=== PATIENT | female | born 1990 | race Caucasian/White ===

== ENCOUNTER 2019-10-26 11:08 | Outpatient (CLI) | payer OTHER, SELFPAY ==
--- NOTE | ~2019-10-26 | US_ITS ---
EXAMINATION: US OB <=14 wk fetus w TV DATE: 10/26/2019 11:55 INDICATION: First trimester dating TECHNIQUE: Real-time pelvic transabdominal and transvaginal ultrasound was performed. COMPARISON: None. FINDINGS: The uterus measures 8.5 x 5.1 x 5.3 cm. There is an intrauterine fluid collection with a me an diameter of 10 mm , which correlates with an estimated gestational age of 5 weeks and 4 day(s) (+/ -) 4 day(s). A 1.3 x 0.8 cm hypoechoic area is seen adjacent to the fluid collection. A yolk sac is i dentified in the fluid collection. The pole is too small to identified. The right ovary measures 2.3 x 1.5 x 1.4 cm. The left ovary measures 3.3 x 2.0 x 1.9 cm. There is nor mal vascular flow in the ovaries. There is no free fluid in the pelvis. IMPRESSION: 1. Intrauterine gestational sac with an estimated gestational age of 5 weeks and 4 day(s) (+/-) 4 day (s) and an estimated delivery date of 06/23/2020 based on mean sac diameter. pole not definitely visualized, likely due to early gestation. 2. Likely small subchorionic hematoma. Reviewed, dictated and finalized at location A. IMPRESSION: 1. Intrauterine gestational sac with an estimated gestational age of 5 weeks an d 4 day(s) (+/-) 4 day(s) and an estimated delivery date of 06/23/2020 based on m fabiola sac diameter. pole not definitely visualized, likely due to early ges tation. 2. Likely small subchorionic hematoma.
== END 2019-10-26 11:09 | disposition home or self-care (01) ==
PROVIDERS: PCP Family Medicine; Visit Provider Student in an Organized Health Care Education/Training Program
DX: Z34.90 Encounter for supervision of normal pregnancy, unspecified, unspecified trimester (principal)
CPT/HCPCS: 76801; 76817

== ENCOUNTER 2019-11-09 10:31 | Outpatient (CLI) | payer OTHER, SELFPAY ==
--- NOTE | ~2019-11-09 | US_ITS ---
EXAMINATION: US OB <=14 wk fetus w TV DATE: 11/09/2019 11:11 INDICATION: Encounter for supervision of normal , first trimester dating TECHNIQUE: Real-time pelvic transabdominal and transvaginal ultrasound was performed. COMPARISON: 10/26/2019 FINDINGS: The uterus measures 14.5 x 7.6 x 5.6 cm. There is an intrauterine gestational sac. There i s a 1.5 x 1.5 x 0.7 cm hypoechoic area adjacent to the gestational sac. A yolk sac is identified. Fet al heart motion is identified measuring 145 beats per minute (bpm) by M-mode Doppler. The crown rump length measures 1.3 cm , which correlates with an estimated gestational age of 7 weeks and 3 da y(s) (+/-) 5 day(s). The right ovary measures 2.3 x 1.9 x 0.9 cm. The left ovary measures 2.5 x 1.8 x 2 cm. There is no fr ee fluid in the pelvis. IMPRESSION: 1. Live intrauterine with an estimated gestational age of 7 weeks and 3 day(s) (+/-) 5 day( s) and an estimated delivery date of 06/24/2020. 2. Small subchorionic hematoma. Reviewed, dictated and finalized at location A. IMPRESSION: 1. Live intrauterine with an estimated gestational age of 7 weeks and 3 day(s) (+/-) 5 day(s) and an estimated delivery date of 06/24/2020. 2. Small subchorionic hematoma.
== END 2019-11-09 10:32 | disposition home or self-care (01) ==
PROVIDERS: PCP Family Medicine; Visit Provider Student in an Organized Health Care Education/Training Program
DX: Z34.90 Encounter for supervision of normal pregnancy, unspecified, unspecified trimester (principal)
CPT/HCPCS: 76801; 76817

== ENCOUNTER 2019-11-23 11:41 | Outpatient (CLI) | payer OTHER, SELFPAY ==
[2019-11-23 12:05] LABS: Basophils Absolute Auto 0.02 K/mm3 (0.00-0.10); Basophils Percent Auto 0.2 % (0.0-1.0); Eosinophils Absolute Auto 0.03 K/mm3 (0.02-0.50); Eosinophils Percent Auto 0.3 % (1.0-6.0); Hematocrit 41.8 % (35.0-49.0); Hemoglobin 13.5 g/dL (12.0-15.0); Immature Granulocyte Absolute 0.04 K/mm3 (0.00-0.00); Immature Granulocyte Percent A 0.4 % (0.0-0.0); Lymphocytes Absolute Auto 1.91 K/mm3 (1.10-4.50); Lymphocytes Percent Auto 21.3 % (18.0-42.0); Mean Corpuscular HGB Conc 32.3 g/dL (32.0-36.0); Mean Corpuscular Hemoglobin 30.3 pg (27.0-31.0); Mean Corpuscular Volume 93.7 fL (78.0-102.0); Mean Platelet Volume 12.6 fl (9.2-11.8); Monocytes Percent Auto 5.6 % (2.0-11.0); Neutrophils Absolute Auto 6.5 K/mm3 (1.7-7.2); Neutrophils Percent Auto 72.2 % (50.0-70.0); Platelet Count Result 118 K/mm3 (150-420); Red Blood Count 4.46 M/mm3 (4.20-5.40); Red Cell Distribution Width 12.4 % (11.6-14.4)
[2019-11-23 12:54] LABS: Thyroid Stimulating Hormone 0.04 uIU/mL (0.36-3.74)
[2019-11-23 13:27] LABS: HIV 1 P24 AG Negative (Negative); HIV 1/2 AB Negative (Negative)
[2019-11-25 19:51] LABS: RPR Screen Non-Reactive (Non-Reactive)
[2019-11-26 11:16] LABS: Vitamin D 25 Hydroxy 32 ng/mL (30-100)
[2019-11-28 06:05] LABS: Hepatitis B Surface Antigen Nonreactive (Nonreactive); Hepatitis C Signal to Cutoff 0.02 ratio (<1.00); Hepatitis C Virus Antibody Nonreactive (Nonreactive)
[2019-11-30 08:42] LABS: Hematocrit 41.7 % (35.0-45.0); Hemoglobin 13.9 g/dL (11.7-15.5); MCH 31.4 pg (27.0-33.0); MCV 94.3 FL (80.0-100.0); RDW 13.9 % (11.0-15.0); Red Blood Cell Count 4.42 Mill/uL (3.80-5.10)
[2019-12-02 20:46] LABS: CF Result POSITIVE (NEGATIVE); Ethnicity NG
== END 2019-11-23 11:42 | disposition home or self-care (01) ==
LOC: CHSLAB 11:44
PROVIDERS: PCP Family Medicine; Visit Provider Student in an Organized Health Care Education/Training Program
DX: Z34.90 Encounter for supervision of normal pregnancy, unspecified, unspecified trimester (principal)
CPT/HCPCS: 36415; 81220; 81243; 82306; 83021; 84443; 85025; 86592; 86703; 86762; 86787; 86850; 86900; 86901; 87086

== ENCOUNTER 2019-12-28 12:16 | Outpatient (CLI) | payer OTHER, SELFPAY ==
[2019-12-28 13:07] LABS: Basophils Absolute Auto 0.02 K/mm3 (0.00-0.10); Basophils Percent Auto 0.2 % (0.0-1.0); Eosinophils Absolute Auto 0.05 K/mm3 (0.02-0.50); Eosinophils Percent Auto 0.6 % (1.0-6.0); Hemoglobin 11.2 g/dL (12.0-15.0); Immature Granulocyte Absolute 0.04 K/mm3 (0.00-0.00); Immature Granulocyte Percent A 0.5 % (0.0-0.0); Immature Platelet Fraction Pct 6.9 % (1.0-7.0); Lymphocytes Absolute Auto 1.83 K/mm3 (1.10-4.50); Lymphocytes Percent Auto 21.5 % (18.0-42.0); Mean Corpuscular Hemoglobin 30.9 pg (27.0-31.0); Mean Corpuscular Volume 96.4 fL (78.0-102.0); Monocytes Absolute Auto 0.42 K/mm3 (0.10-0.90); Monocytes Percent Auto 4.9 % (2.0-11.0); Neutrophils Absolute Auto 6.1 K/mm3 (1.7-7.2); Neutrophils Percent Auto 72.3 % (50.0-70.0); Platelet Count Result 105 K/mm3 (150-420); Red Blood Count 3.63 M/mm3 (4.20-5.40); Red Cell Distribution Width 13.9 % (11.6-14.4); White Blood Count 8.5 K/mm3 (4.8-10.8)
[2019-12-28 13:54] LABS: Thyroid Stimulating Hormone 0.59 uIU/mL (0.36-3.74)
[2019-12-31 06:35] LABS: T4 Thyroxine 11.3 mcg/dL (5.1-11.9)
[2020-01-01 23:36] LABS: Vitamin D 25 Hydroxy 31 ng/mL (30-100)
[2020-01-02 10:20] LABS: Total Triiodothyronine (T3) 173.8 ng/dL (76-181)
== END 2019-12-28 12:17 | disposition home or self-care (01) ==
LOC: CHSLAB 12:19
PROVIDERS: PCP Family Medicine; Visit Provider Student in an Organized Health Care Education/Training Program
DX: Z34.81 Encounter for supervision of other normal pregnancy, first trimester (principal)
CPT/HCPCS: 36415; 82306; 84436; 84443; 84480; 85025; 85055; 86900; 86901

== ENCOUNTER 2020-01-25 13:48 | Outpatient (CLI) | payer OTHER, SELFPAY ==
[2020-01-25 14:01] LABS: Hematocrit 31.9 % (35.0-49.0); Hemoglobin 10.4 g/dL (12.0-15.0); Immature Platelet Fraction Pct 7.1 % (1.0-7.0); Mean Corpuscular HGB Conc 32.6 g/dL (32.0-36.0); Mean Corpuscular Hemoglobin 31.6 pg (27.0-31.0); Mean Platelet Volume 11.8 fl (9.2-11.8); Platelet Count Result 121 K/mm3 (150-420); Red Blood Count 3.29 M/mm3 (4.20-5.40); Red Cell Distribution Width 13.4 % (11.6-14.4); White Blood Count 10.8 K/mm3 (4.8-10.8)
== END 2020-01-25 13:49 | disposition home or self-care (01) ==
LOC: CHSLAB 13:50
PROVIDERS: PCP Family Medicine; Visit Provider Student in an Organized Health Care Education/Training Program
DX: Z34.82 Encounter for supervision of other normal pregnancy, second trimester (principal)
CPT/HCPCS: 36415; 85027; 85055

== ENCOUNTER 2020-02-22 10:41 | Outpatient (CLI) | payer OTHER, SELFPAY ==
[2020-02-22 10:52] LABS: Hematocrit 30.7 % (35.0-49.0); Hemoglobin 9.8 g/dL (12.0-15.0); Mean Corpuscular HGB Conc 31.9 g/dL (32.0-36.0); Mean Corpuscular Hemoglobin 30.7 pg (27.0-31.0); Mean Corpuscular Volume 96.2 fL (78.0-102.0); Mean Platelet Volume 12.4 fl (9.2-11.8); Platelet Count Result 102 K/mm3 (150-420); Red Blood Count 3.19 M/mm3 (4.20-5.40); Red Cell Distribution Width 13.3 % (11.6-14.4); White Blood Count 10.4 K/mm3 (4.8-10.8)
== END 2020-02-22 10:42 | disposition home or self-care (01) ==
LOC: CHSLAB 10:43
PROVIDERS: PCP Family Medicine; Visit Provider Student in an Organized Health Care Education/Training Program
DX: Z86.2 Personal history of diseases of the blood and blood-forming organs and certain disorders involving the immune mechanism (principal)
CPT/HCPCS: 36415; 85027

== ENCOUNTER 2020-03-28 11:00 | Outpatient (CLI) | payer OTHER, SELFPAY ==
[2020-03-28 12:24] LABS: Basophils Absolute Auto 0.02 K/mm3 (0.00-0.10); Basophils Percent Auto 0.2 % (0.0-1.0); Eosinophils Absolute Auto 0.03 K/mm3 (0.02-0.50); Eosinophils Percent Auto 0.3 % (1.0-6.0); Hematocrit 29.4 % (35.0-49.0); Hemoglobin 9.2 g/dL (12.0-15.0); Immature Granulocyte Absolute 0.13 K/mm3 (0.00-0.00); Immature Granulocyte Percent A 1.2 % (0.0-0.0); Lymphocytes Absolute Auto 2.09 K/mm3 (1.10-4.50); Lymphocytes Percent Auto 18.7 % (18.0-42.0); Mean Corpuscular HGB Conc 31.3 g/dL (32.0-36.0); Mean Corpuscular Hemoglobin 28.4 pg (27.0-31.0); Mean Corpuscular Volume 90.7 fL (78.0-102.0); Mean Platelet Volume 11.9 fl (9.2-11.8); Monocytes Percent Auto 4.5 % (2.0-11.0); Neutrophils Absolute Auto 8.4 K/mm3 (1.7-7.2); Neutrophils Percent Auto 75.1 % (50.0-70.0); Platelet Count Result 134 K/mm3 (150-420); Red Blood Count 3.24 M/mm3 (4.20-5.40); Red Cell Distribution Width 14.3 % (11.6-14.4); White Blood Count 11.2 K/mm3 (4.8-10.8)
[2020-03-28 12:45] LABS: Glucose 1 Hour PP 50gm Dose 159 mg/dL (70-130)
== END 2020-03-28 11:01 | disposition home or self-care (01) ==
LOC: CHSLAB 11:03
PROVIDERS: PCP Family Medicine; Visit Provider Student in an Organized Health Care Education/Training Program
DX: Z34.02 Encounter for supervision of normal first pregnancy, second trimester (principal)
CPT/HCPCS: 36415; 82947; 85025

== ENCOUNTER 2020-03-30 08:40 | Outpatient (CLI) | payer OTHER, SELFPAY ==
[2020-03-30 08:58] LABS: Immature Reticulocyte Fraction 35.5 % (2.0-16.52); Reticulocyte Hemoglobin Conten 27.6 pg (28.0-35.0); Reticulocyte Percent 2.54 % (0.50-1.50); Reticulocytes Absolute 0.08 M/mm3 (0.02-0.1)
[2020-03-30 10:08] LABS: Ferritin 5 ng/mL (8-252); Iron 42 ug/dL (50-170); Percent Iron Saturation 9 % (12-57)
[2020-03-30 12:37] LABS: Glucose Fasting Gestational 88 mg/dL (>/=95)
[2020-03-30 12:38] LABS: Glucose 2 Hour Gest 151 mg/dL (<155)
[2020-03-30 12:38] LABS: Glucose 1 Hour Gest 166 mg/dL (70-130)
[2020-03-30 12:39] LABS: Glucose 3 Hour Gest 135 mg/dL (>/=140)
== END 2020-03-30 08:41 | disposition home or self-care (01) ==
LOC: CHSLAB 08:43
PROVIDERS: PCP Family Medicine; Visit Provider Student in an Organized Health Care Education/Training Program
DX: R79.0 Abnormal level of blood mineral (principal); Z34.90 Encounter for supervision of normal pregnancy, unspecified, unspecified trimester; R73.09 Other abnormal glucose
CPT/HCPCS: 36415; 82728; 82951; 82952; 83540; 83550; 85046

== ENCOUNTER 2020-04-09 12:48 | Observation (INO) | payer OTHER, SELFPAY ==
--- NOTE | 2020-04-09 12:48 | OBADM ---
This patient, Jessica Mao, admitted to the OB room OB Post 115 for observation. Patient/family oriented to hospital policies and general routines including ID bracelet, bed and alarms, visiting hours, pain management, procedures, bathroom and other care routines, personal items, smoking policy, room service/diet, and visiting hours. Patient/Family are encouraged to report perceived risks to care and to ask questions if they do not understand what they are told or what they should do.
[2020-04-09 13:10] VITALS: BP 102/59; PULSE 86; TEMP 36.4; BMI 26.2
[2020-04-09 13:16] VITALS: BP 97/58; PULSE 87
[2020-04-09 13:31] VITALS: BP 96/52; PULSE 83
--- NOTE | 2020-04-24 16:48 | PM.OBTRLD ---
OB - Triage/Final Diagnosis Visit Information Comments/Additional reasons for admission: I have assessed the risk for this patient, Jessica Mao, and determined that she would benefit from observation care. Final Diagnosis (1) Vaginal spotting: Code(s): N93.9 - Abnormal uterine and vaginal bleeding, unspecified Status: Acute
== END 2020-04-09 13:40 | disposition home or self-care (01) ==
PROVIDERS: Admitting Provider Student in an Organized Health Care Education/Training Program; PCP Family Medicine; Visit Provider Student in an Organized Health Care Education/Training Program
DX: O26.859 Spotting complicating pregnancy, unspecified trimester (principal); Z3A.00 Weeks of gestation of pregnancy not specified
CPT/HCPCS: G0378; G0379

== ENCOUNTER 2020-05-02 10:55 | Outpatient (CLI) | payer OTHER, SELFPAY ==
[2020-05-02 11:09] LABS: Basophils Absolute Auto 0.04 K/mm3 (0.00-0.10); Basophils Percent Auto 0.3 % (0.0-1.0); Eosinophils Absolute Auto 0.05 K/mm3 (0.02-0.50); Eosinophils Percent Auto 0.4 % (1.0-6.0); Hematocrit 27.7 % (35.0-49.0); Hemoglobin 8.4 g/dL (12.0-15.0); Immature Granulocyte Absolute 0.32 K/mm3 (0.00-0.00); Immature Granulocyte Percent A 2.7 % (0.0-0.0); Immature Platelet Fraction Pct 5.9 % (1.0-7.0); Lymphocytes Absolute Auto 2.11 K/mm3 (1.10-4.50); Lymphocytes Percent Auto 17.8 % (18.0-42.0); Mean Corpuscular HGB Conc 30.3 g/dL (32.0-36.0); Mean Corpuscular Hemoglobin 26.6 pg (27.0-31.0); Mean Corpuscular Volume 87.7 fL (78.0-102.0); Mean Platelet Volume 11.8 fl (9.2-11.8); Monocytes Absolute Auto 0.62 K/mm3 (0.10-0.90); Monocytes Percent Auto 5.2 % (2.0-11.0); Neutrophils Absolute Auto 8.7 K/mm3 (1.7-7.2); Neutrophils Percent Auto 73.6 % (50.0-70.0); Nucleated Red Blood Cells Absolute Auto 0.02 K/mm3 (0.00-0.00); Nucleated Red Blood Cells Perc 0.2 % (0-0.0); Platelet Count Result 141 K/mm3 (150-420); Red Blood Count 3.16 M/mm3 (4.20-5.40); Red Cell Distribution Width 15.5 % (11.6-14.4); White Blood Count 11.9 K/mm3 (4.8-10.8)
[2020-05-02 12:27] LABS: HIV 1 P24 AG Negative (Negative); HIV 1/2 AB Negative (Negative)
[2020-05-05 14:21] LABS: RPR Screen Non-Reactive (Non-Reactive)
== END 2020-05-02 10:56 | disposition home or self-care (01) ==
LOC: CHSLAB 10:58
PROVIDERS: PCP Family Medicine; Visit Provider Obstetrics & Gynecology
DX: O09.93 Supervision of high risk pregnancy, unspecified, third trimester (principal)
CPT/HCPCS: 36415; 85025; 85055; 86592; 86703

== ENCOUNTER 2020-05-23 10:21 | Outpatient (CLI) | payer OTHER, SELFPAY ==
[2020-05-23 10:37] LABS: Hematocrit 33.8 % (35.0-49.0); Hemoglobin 10.1 g/dL (12.0-15.0); Mean Corpuscular HGB Conc 29.9 g/dL (32.0-36.0); Mean Corpuscular Hemoglobin 28.9 pg (27.0-31.0); Mean Corpuscular Volume 96.6 fL (78.0-102.0); Mean Platelet Volume 11.6 fl (9.2-11.8); Platelet Count Result 121 K/mm3 (150-420); Red Cell Distribution Width 24.8 % (11.6-14.4); White Blood Count 10.9 K/mm3 (4.8-10.8)
== END 2020-05-23 10:22 | disposition home or self-care (01) ==
LOC: CHSLAB 10:23
PROVIDERS: PCP Family Medicine; Visit Provider Student in an Organized Health Care Education/Training Program
DX: D50.9 Iron deficiency anemia, unspecified (principal); O09.93 Supervision of high risk pregnancy, unspecified, third trimester
CPT/HCPCS: 36415; 85027

== ENCOUNTER 2020-06-12 06:48 | Inpatient (IN) | payer OTHER, SELFPAY ==
[2020-06-12] VITALS (71 sets, daily range): BP systolic 84–140; BP diastolic 46–94; PULSE 68–104; RESP 16; TEMP 36.4–37.7; O2SAT 79–100; BMI 27.6
[2020-06-12 07:19] LABS: Basophils Percent Auto 0.3 % (0.2-1.2); Eosinophils Absolute Auto 0.1 K/mm3 (0-0.3); Eosinophils Percent Auto 0.7 % (0-4.4); Hematocrit 34.5 % (37.0-47.0); Immature Granulocyte Absolute 0.25 K/mm3 (0.00-0.031); Immature Granulocyte Percent A 2.1 % (0-0.5); Lymphocytes Percent Auto 21.2 % (18.3-44.2); Mean Corpuscular HGB Conc 31.9 g/dl (32-36); Mean Corpuscular Hemoglobin 30.6 pg (26-34); Mean Corpuscular Volume 96.1 fl (80-100); Monocytes Absolute Auto 0.8 K/mm3 (0.1-0.6); Monocytes Percent Auto 6.9 % (2.6-8.5); Neutrophils Absolute Auto 8.1 K/mm3 (1.3-6.7); Neutrophils Percent Auto 68.8 % (45.5-73.1); Platelet Count Result 129 k/mm3 (150-375); Red Blood Count 3.59 M/mm3 (4.2-5.4); Red Cell Distribution Width 22.2 % (11.5-14.5); White Blood Count 11.8 K/mm3 (4.5-10.0)
[2020-06-12] MEDS: AMPICILLIN 2 GM/NS 100 ML 2 GM/100 ML BAG IVPB (07:26)
[2020-06-12] MEDS: LACTATED RINGERS 1,000 ML 125 ML IV CONT ×2 (07:27→11:20)
[2020-06-12] MEDS: OXYTOCIN 30 UNITS/NS 500 ML 30 UNITS/500 ML BAG IV CONT (07:28)
--- NOTE | 2020-06-12 08:32 | LDADM ---
This patient, Jessica Mao, was admitted to Labor/Delivery/Recovery 108 on 06/12/20 at 06:48. Plans for labor, pain management and were discussed with patient. Patient/family oriented to hospital policies and general routines including ID bracelet, bed and alarms, visiting hours, pain management, procedures, bathroom and other care routines, personal items, smoking policy, room service/diet and guest tray routines, infant security routines, and visiting hours. Patient/Family are encouraged to report perceived risks to care and to ask questions if they do not understand what they are told or what they should do. See OBIX for further documentation.
[2020-06-12] MEDS: fentaNYL CITRATE INJ (*CRX) 100 MCG/2 ML VIAL 50 MCG IV PUSH (10:08)
--- NOTE | 2020-06-12 10:32 | PM.IMHP ---
H&P: HPI History of Present Illness Date/Time: 06/12/20 10:32 Patient is a 31-year-old currently 39 weeks gestation. Last menstrual period 09/13/19 with an estimated due date 06/19/20. Patient is dated by her last menstrual period which is consistent with an ultrasound on 10/26/19 and 5 weeks gestation. Patient presents to Labor and delivery for scheduled elective induction of labor at term. Patient reports feeling well today. Patient reports occasional contractions. Denies any vaginal bleeding or leakage of fluid. Reports good movement. Patient's course has been complicated by anemia requiring iron infusions as well as a history of ITP. Platelet count throughout has remained relatively stable. Chief Complaint: Induction of labor Review of Systems Review of Systems: All systems reviewed & are unremarkable except as noted in HPI and below Constitutional: Constitutional: Reports as per HPI, Reports no additional constitutional complaints, Denies chills, Denies fever(s), Denies headache(s) and Denies night sweats Eyes: Eyes: Reports as per HPI and Reports no additional eye complaints ENT: Reports system reviewed and no additional complaints, except as documented, Reports as per HPI, Reports Normal hearing present and Denies headache(s) Cardiovascular: Cardiovascular: Reports as per HPI, Reports no additional cardiovascular complaints, Denies chest pain and Denies dyspnea Respiratory: Respiratory: Reports as per HPI, Reports no additional respiratory complaints, Denies cough and Denies dyspnea Gastrointestinal: Gastrointestinal: Reports as per HPI, Reports no additional gastrointestinal complaints, Denies abdominal pain, Denies change in bowel habits, Denies change in stool character, Denies nausea and Denies vomiting Genitourinary: Genitourinary: Reports no additional female genitourinary complaints, Reports as per HPI, Denies abnormal vaginal bleeding, Denies genital lesions, Denies hot flashes, Denies dyspareunia, Denies pelvic pain, Denies sexual dysfunction, Denies urinary incontinence, Denies vaginal discharge, Denies vaginal dryness and Denies vaginal odor Musculoskeletal: Musculoskeletal: Reports no additional musculoskeletal complaints and Reports as per HPI Integumentary/Breasts: Skin/Breast: Reports system reviewed and no additional complaints, except as docu, Reports as per HPI, Denies breast pain and Denies nipple discharge Neurologic: Reports system reviewed and no additional complaints, except as documented, Reports as per HPI, Reports Normal hearing present and Denies headache(s) Psychiatric: Psychiatric: Reports no additional psychiatric complaints, Reports as per HPI, Denies anxiety and Denies depression Endocrine: Endocrine: Reports no additional endocrine complaints and Reports as per HPI Hematologic/Lymphatic: Hematologic/Lymphatic: Reports no additional hematologic/lymphatic complaints and Reports as per HPI Allergic/Immunologic: Allergic/Immunologic: Reports no additional allergic/immunologic complaints and Reports as per HPI PMFSH Past Medical History Medical History (Updated 06/12/20 @ 10:46 by Merced Moody MD) Anemia Anxiety Asthma Chlamydia Cystic fibrosis carrier History of ITP 2013 HPV in female 2012 Vaginal delivery x 2 Surgical History Surgical History [place] teeth extracted Family History Family History Grandparent Cerebrovascular accident Family history of coronary artery disease Other Diabetes mellitus Family history of malignant neoplasm of cervix Family history of malignant neoplasm of ovary Hypertension Social History Social History Smoking status: Current every day smoker Tobacco type: cigarettes Second hand tobacco smoke exposure: Yes Smoking end date: 03/23/14 Alcohol intake:
--- NOTE | 2020-06-12 10:49 | WPDHPUPDATE1 ---
History and Physical Update Update Date/Time: 06/12/20 10:49 History and Physical has been reviewed, including an updated exam of the patient. There are NO changes in the patient's condition. Risks, benefits, and alternatives have been discussed and questions answered. Patient agrees to proceed with procedure.
--- NOTE | 2020-06-12 10:56 | PC.NURSE ---
All Entries made today 06/12/20 after 0600 by Evangelina NEGRETE were actually made by Dana NEGRETE
--- NOTE | 2020-06-12 11:10 | WPDANESEPP ---
Anes - Eval Pre Procedure Procedure: labor epidural Date/Time: 06/12/20 11:10 Preop Diagnosis: labor pain Pre Op Diagnosis: Induction of Labor Patient Data Age: 29 Gender: F Height: 5 ft 1 in Weight: 66.36 kg Last Vital Signs Temp 37.1 C 06/12/20 09:30 Pulse 86 06/12/20 11:00 BP 122/81 06/12/20 11:00 Allergies Allergy/AdvReac Type Severity Reaction Status Date / Time codeine AdvReac Mild Confusion Verified 06/08/20 14:36 Home Medications Medication Instructions Recorded Confirmed Type docosahexaenoic acid 200 mg capsule See Rx Instructions .ROUTE 10/26/19 05/31/20 History .COMPLEX cap Laboratory Tests 06/12/20 06/12/20 06/12/20 07:06 07:06 07:06 WBC 11.8 K/mm3 H K/mm3 (4.5-10.0) RBC 3.59 M/mm3 L M/mm3 (4.2-5.4) Hgb 11.0 g/dL L g/dL (12.0-15.0) Hct 34.5 % L % (37.0-47.0) MCV 96.1 fl fl (80-100) MCH 30.6 pg pg (26-34) MCHC 31.9 g/dl L g/dl (32-36) RDW 22.2 % H % (11.5-14.5) Plt Count 129 k/mm3 L k/mm3 (150-375) MPV 12.0 fl H fl (7.4-10.4) Immature Gran % (Auto) 2.1 % H % (0-0.5) Neut % (Auto) 68.8 % % (45.5-73.1) Lymph % (Auto) 21.2 % % (18.3-44.2) [place] % (Auto) 6.9 % % (2.6-8.5) Eos % (Auto) 0.7 % % (0-4.4) Baso % (Auto) 0.3 % % (0.2-1.2) Lymph # (Auto) 2.50 K/mm3 K/mm3 (0.9-3.2) [place] # (Auto) 0.8 K/mm3 H K/mm3 (0.1-0.6) Eos # (Auto) 0.1 K/mm3 K/mm3 (0-0.3) Baso # (Auto) 0.0 K/mm3 K/mm3 (0.0-0.1) Abs Immat Gran (auto) 0.25 K/mm3 H K/mm3 (0.00-0.031) Absolute Neuts (auto) 8.1 K/mm3 H K/mm3 (1.3-6.7) Absolute Nucleated RBC 0.0 K/mm3 K/mm3 (0.0-0.012) Nucleated RBC % 0.0 % % (0.0-0.2) RPR Pending Blood Type A Positive Antibody Screen Negative Patient hx anesthesia problems: none Family hx anesthesia problems: none PMFSH Past Medical History Medical History (Updated 06/12/20 @ 10:46 by Merced Moody MD) Anemia Anxiety Asthma Chlamydia Cystic fibrosis carrier History of ITP 2013 HPV in female 2012 Vaginal delivery x 2 Surgical History Surgical History [place] teeth extracted Family History Family History Grandparent Cerebrovascular accident Family history of coronary artery disease Other Diabetes mellitus Family history of malignant neoplasm of cervix Family history of malignant neoplasm of ovary Hypertension Social History Social History Smoking status: Current every day smoker Tobacco type: cigarettes Second hand tobacco smoke exposure: Yes Smoking end date: 03/23/14 Alcohol intake: current Substance use: never Gender identity (if verbalized by the patient): Female Spiritual care concerns: No Exam Day of Procedure 06/12/20 11:10
[2020-06-12] MEDS: AMPICILLIN 1 GM/NS 50 ML 1 GM/50 ML BAG IVPB (11:20)
--- NOTE | 2020-06-12 12:52 | P.PCNOB_ITS ---
OB - Delivery Note Procedure Delivery date: 06/12/20 Procedure: The patient is a 29-year-old now who presented to labor and delivery on the morning of 06/12/2020 for a scheduled elective induction of labor at term. Patient was admitted to labor and delivery where induction of labor was begun with Pitocin. Patient's initial cervical exam was approximately 3 cm dilated. Patient was GBS positive and GBS prophylaxis was started. At 10:12 a.m., artificial rupture membranes was performed. Clear amniotic fluid was noted. Patient continued to make progressive cervical change. Patient became uncomfortable and requested an epidural for pain management, which was placed without difficulty. Patient progressed to fully dilated at 12:25 p.m. Patient was prepped and draped for delivery. At 12:31 p.m., patient delivered infant head atraumatically without difficulty in YO presentation. Occiput restituted to maternal right side. With subsequent push, the 's neck, shoulders, and rest of body delivered without difficulty. Infant was crying spontaneously. 's nose and mouth were suctioned with bulb suction. The was placed on maternal abdomen and care was assumed by waiting nursing. Delayed cord clamping was performed for approximately 60 seconds. The cord was clamped and cut. A segment of cord was collected for cord gases. Cord blood was collected. The placenta was delivered spontaneously and intact. Uterine fundus was noted to be firm with gentle massage. On inspection, no lacerations were noted, however, a small left vaginal wall abrasion was noted. This abrasion, however, was not bleeding and did not require repair. Estimated blood loss for entire delivery was 100 cc. The infant was a live-born female , Apgars 9 and 9, weighing 8 lb 6 oz. Both mother and baby doing well at the end of delivery. events: Labor Induction Induction method: per pitocin protocol Delivery augmentation: rupture of membranes Delivery monitor: external FHT and external uterine Route of delivery: Laceration Description: None (however, small left vaginal wall abrasion noted, hemostatic and did not require repair) Specimen: No Quantitative Blood Loss (ml): 100 Anesthesia type: Epidural Disposition: floor Complications: No immediate complications [place] Baby Date of : 06/12/20 Time of : 12:31 Weeks of gestation at delivery: 39 gender: Female Weight (pounds): 8 Weight (ounces): 6 presentation: vertex position: Right Occiput Anterior Placenta delivery description: Spontaneous cord vessel description: 3 Vessels and Delayed Cord Clamping score one minute: 9 score five minutes: 9
[2020-06-12] MEDS: OXYTOCIN 30 UNITS/NS 500 ML 30 UNITS/500 ML BAG 125 UNITS IV CONT (13:24)
--- NOTE | 2020-06-12 15:00 | PC.NURSE ---
Patient transferred to post room #286 via wheelchair. Support person present. Oriented to unit, room, information board, rooming in, admission packet and security measures. Patient verbalizes understanding.
[2020-06-12] MEDS: IBUPROFEN 600 MG TABLET PO (15:34)
[2020-06-13] MEDS: IBUPROFEN 600 MG TABLET PO ×3 (02:21→16:18)
[2020-06-13 04:04] VITALS: BP 108/74; PULSE 68; RESP 16; TEMP 36.4; O2SAT 99
[2020-06-13 05:18] LABS: Hemoglobin 10.1 g/dL (12.0-15.0)
--- NOTE | 2020-06-13 07:40 | P.PNOB_ITS ---
OB - PN: Subj Subjective Date/time seen: 06/13/20 07:40 Patient comments: no complaints, pain well controlled and other (Lochia similar to menses) [place] baby status: doing well OB - PN: Obj Data Labs CBC & Chem 7: 06/13/20 04:09 Labs: Laboratory Results - last 24 hr 06/12/20 06/13/20 07:06 04:09 Hgb 10.1 L Hct 33.0 L Blood Type A Positive Antibody Screen Negative OB - PN A/P Plan day: 1 (s/p vaginal delivery, doing well) Plan: routine care Time Spent With Patient Time: Total time spent is greater than 50% in coordination of care (as documented) at patient's floor/unit and/or counseling patient: Exam Const: General: no acute distress GI: Inspection: other (Fundus firm and nontender at umbilicus) GI Palp: Yes Soft to palpation and No Tenderness to palpation present (GI) Extrem: General: no edema
[2020-06-13 07:55] LABS: Rapid Plasma Reagin Non-Reactive (NonReactive)
--- NOTE | 2020-06-13 08:00 | PC.NURSE ---
PT introductions made and plan of care discussed per post , pain management, breast feeding, daily care activities. PT verbalized understanding of such care.
[2020-06-13 08:05] VITALS: BP 86/49; PULSE 82; RESP 18; TEMP 36.9; O2SAT 98
[2020-06-13] MEDS: ACETAMINOPHEN 325 MG TABLET 650 MG PO ×2 (09:22→16:17)
[2020-06-13 09:23] VITALS: PULSE 82; RESP 18; O2SAT 98
[2020-06-13] MEDS: MULTIVIT/MIN/PREN/FOL AC/IRON TABLET 1 TAB PO (09:23)
[2020-06-13] MEDS: DOCUSATE SODIUM 100 MG CAPSULE PO ×2 (09:23→16:17)
[2020-06-13 19:45] VITALS: BP 86/49; PULSE 66; RESP 16; TEMP 36.6; O2SAT 99
--- NOTE | 2020-06-14 06:45 | PC.NURSE ---
PT introductions made and plan of care discussed per post , pain management, breast /bottle feeding, daily care activities and pending discharge to home. PT verbalized understanding of such care.
--- NOTE | 2020-06-14 07:49 | PM.OBPNVD ---
OB - PN: Subj Subjective Date/time seen: 06/14/20 07:49 Patient doing well this morning. Denies any significant pain. Pain well controlled with medication. Minimal lochia. Denies any chest pain, shortness of breath, headache, nausea, vomiting. Ambulating without difficulty. OB - PN: Obj Data Labs CBC & Chem 7: 06/13/20 04:09 Labs: Laboratory Results - last 24 hr 06/12/20 07:06 RPR Non-reactive OB - PN A/P Assessment and Plan (1) Normal spontaneous vaginal delivery: Code(s): O80 - Encounter for full-term uncomplicated delivery Status: Acute Assessment and Plan: doing well d/c home in stable condition emergency precautions reviewed f/u in office in 4-6 weeks for visit Time Spent With Patient Time: Total time spent is greater than 50% in coordination of care (as documented) at patient's floor/unit and/or counseling patient: Exam Const: General: cooperative, healthy appearing, comfortable and no acute distress GI: Inspection: non-distended GI Palp: Yes Soft to palpation and No Tenderness to palpation present (GI) Other: fundus firm below umbilicus Extrem: Right lower extremity: no edema Left lower extremity: no edema Other: no calf tenderness
--- NOTE | 2020-06-14 07:53 | PM.OBDSVD ---
DS: Admitting Diagnosis Admitting Diagnosis Admitting Diagnosis: Induction of labor OB - DS: Summary OB Procedures : None OB Procedures Intrapartum: Spontaneous Vag Delivery and GBS prophylaxis OB Procedures: : None Time Spent with Patient Time attestation: Total time spent providing and/or coordinating discharge services: DS: Data Data Completed and Pending Labs on day of discharge: Labs from last 24 hours 06/12/20 07:06 RPR Non-reactive Discharge Plan Discharge Attending physician on discharge: Merced Moody Discharging Clinician: Merced Moody Anticipated Discharge Date/Time: 06/14/20 07:53 Patient Disposition: Home, Self-Care Activity: as tolerated and pelvic rest Diet: regular Discharge Instructions: Call office ([phone]) to schedule a visit in 4-6 weeks. You may take Ibuprofen 600mg every 6 hours as needed for pain. Pain medication may make you constipated. It may be helpful to take an [id number] stool softener, such as Colace and/or Senokot, along with the pain medication to help lessen constipation. Call office or go to ED for pain not controlled with medication, headache, chest pain, shortness of breath, fever, chills, persistent nausea or vomiting, severe abdominal pain, heavy vaginal bleeding >2 pads/hour, foul vaginal discharge or odor, or problems with your breasts. Patient Instructions: Antibiotic Form, How to Stop Smoking (DC) Stand Alone Forms: General Discharge Information Follow-up/Referrals: Merced Moody MD [Physician] - Discharge Medications: Continued DHA 200 mg capsule See Rx Instructions .ROUTE .COMPLEX RF: 0 Date of admission: 06/12/20 06:48 Primary Care Provider: LitaSharath Admitting Provider: Merced Moody Attending physician on admission: Merced Moody Condition: Stable
[2020-06-14 08:20] VITALS: BP 100/67; PULSE 63; RESP 16; TEMP 37.2; O2SAT 98
[2020-06-14] MEDS: DOCUSATE SODIUM 100 MG CAPSULE PO (10:59)
[2020-06-14] MEDS: ACETAMINOPHEN 325 MG TABLET 650 MG PO (10:59)
[2020-06-14] MEDS: MULTIVIT/MIN/PREN/FOL AC/IRON TABLET 1 TAB PO (10:59)
[2020-06-14 11:00] VITALS: PULSE 63; RESP 16; O2SAT 98
[2020-06-14] MEDS: IBUPROFEN 600 MG TABLET PO (11:00)
--- NOTE | 2020-06-14 11:00 | PC.NURSE ---
Patient viewed the discharge video Mother & Baby Care, The First Two Weeks . Patient was given the opportunity and encouraged to ask questions. Patient verbalized understanding of information shared and has been given the mother/baby guide for home reference.
--- NOTE | 2020-06-14 12:00 | PC.NURSE ---
PT received discharge instructions per protocol and she and her significant other both received instructions per one to one discussion and both verbalized understanding of such instructions. NO barriers to learning identified. Follow up appts confirmed
--- NOTE | 2020-06-14 12:30 | PC.NURSE ---
PT discharged to home ambulatory accompanied by significant other and and taken to waiting car. Follow up appts confirmed
[2020-06-16 11:15] VITALS: BP 94/52; PULSE 72; RESP 16; TEMP 37.1; O2SAT 99
== END 2020-06-14 12:30 | disposition home or self-care (01) | DRG 560 ==
LOC: ANHLDR 06:59 → ANHOB2 15:05
PROVIDERS: Admitting Provider Student in an Organized Health Care Education/Training Program; PCP Family Medicine; Visit Provider Student in an Organized Health Care Education/Training Program
DX: O99.824 Streptococcus B carrier state complicating childbirth (principal); Z37.0 Single live birth; Z3A.39 39 weeks gestation of pregnancy; O62.3 Precipitate labor; O99.344 Other mental disorders complicating childbirth; F41.9 Anxiety disorder, unspecified; O99.52 Diseases of the respiratory system complicating childbirth; J45.909 Unspecified asthma, uncomplicated; O99.02 Anemia complicating childbirth; D50.9 Iron deficiency anemia, unspecified; Z14.1 Cystic fibrosis carrier; O71.89 Other specified obstetric trauma
CPT/HCPCS: 36415; 85014; 85018; 85025; 86592; 86850; 86900; 86901; A9270; J0290; J2590; J2795; J3010; J7120

== ENCOUNTER 2020-10-21 18:03 | Emergency (ER) | payer OTHER, SELFPAY ==
[2020-10-21 18:10] VITALS: BP 108/70; PULSE 73; RESP 14; TEMP 36.6; O2SAT 100
--- NOTE | 2020-10-21 18:11 | ED.URI ---
HPI - URI/Sore Throat General Chief Complaint: Upper Respiratory Infection Stated Complaint: Sinus pressure low grade fever Source: patient and RN notes reviewed Mode of arrival: ambulatory Limitations: no limitations History of Present Illness MD elicited complaint: cough, sore throat, nasal congestion and sinus pain Onset (ago): day(s) (4) Consistency: constant Severity: moderate Description of mucous: yellow Able to tolerate fluids by mouth: Yes Exacerbating factors: nothing Relieving factors: nothing Associated symptoms: rhinorrhea Treatments prior to arrival: cold medicine ( Pseudoephedrine which helped) Related Data Home Medications Medication Instructions Recorded Confirmed No Home Medications 10/21/20 10/21/20 Allergies Allergy/AdvReac Type Severity Reaction Status Date / Time codeine AdvReac Mild Confusion Verified 08/22/20 09:08 Review of Systems Review of Systems: All systems reviewed & are unremarkable except as noted in HPI and below Constitutional: Constitutional: Denies chills, Denies fever(s) and Denies weakness PMFSH Past Medical History Medical History Anemia Anxiety Asthma Chlamydia Cystic fibrosis carrier History of ITP 2013 HPV in female 2012 Vaginal delivery x 3 Surgical History Surgical History [place] teeth extracted Family History Family History Grandparent Cerebrovascular accident Family history of coronary artery disease Other Diabetes mellitus Family history of malignant neoplasm of cervix Family history of malignant neoplasm of ovary Hypertension Social History Social History (Updated 10/21/20 @ 18:16 by Pascual Goldstein MD) Smoking status: Former smoker Tobacco type: cigarettes Second hand tobacco smoke exposure: Yes Smoking end date: 09/20/20 Alcohol intake: current Alcohol use details: Socially Substance use: never Gender identity (if verbalized by the patient): Female Spiritual care concerns: No Exam Const: General: healthy appearing, no acute distress and alert Nutritional Appearance: well nourished Orientation/consciousness: patient oriented x3 Other: female nurse in room during examination. HENMT: Ears: external ears normal, TM's normal bilaterally and EAC's normal Face and sinus: normal facial exam and sinus tenderness frontal (left) and maxillary (left) Mouth: Yes lip normal and Yes moist mucous membranes Throat: posterior oropharynx normal Eyes: Conjunctivae: conjunctivae normal Pupils: Equal, round and reactive pupils present EOM: EOMs intact bilaterally Neck: Neck: normal visual inspection and no lymphadenopathy Resp: Effort & Inspection: normal respiratory effort Auscultation: clear to auscultation bilaterally Cardio: Rate: regular rate Rhythm: regular rhythm GI: GI Palp: Yes Soft to palpation and No Tenderness to palpation present (GI) Auscultation: normal bowel sounds Back/Spine/Pelvis: Cervical Spine: cervical ROM normal Thoracic/Lumbar Spine: thoraco-lumbar ROM normal Skin: General skin exam: normal color Rashes: no rashes Neuro: General: patient oriented x3, moves all extremities, no meningeal signs and no focal motor deficits Speech: normal speech Gait exam (Neuro): Normal gait present Extrem: General: normal to inspection and no clubbing, cyanosis or edema Psych: Appearance: grossly normal and well kempt Mental Status: mental status grossly normal Affect: normal affect Attitude: cooperative Thought content: Yes Normal thought content present MDM - URI/Sore Throat Lab Data Attestation: I reviewed the patient's lab results. Discharge Plan Discharge Clinical Impression: Sinusitis, acute Qualifiers: Sinusitis location: frontal Recurrence: non-recurrent Qualified Code(s): J01.10 - Acute frontal sinusitis, unspecified
[2020-10-21 18:51] LABS: Influenza Control Valid (Valid); SARS-CoV-2 Ag Negative (Negative)
[2020-10-21 18:55] VITALS: RESP 16; O2SAT 98
== END 2020-10-21 18:57 | disposition home or self-care (01) ==
PROVIDERS: Emergency Provider Emergency Medicine; PCP Family Medicine
DX: J01.10 Acute frontal sinusitis, unspecified (principal); Z20.822 Contact with and (suspected) exposure to COVID-19
CPT/HCPCS: 36415; 87426; 87804; 99282; 99283; C9803

== ENCOUNTER 2021-06-11 17:49 | Emergency (ER) | payer OTHER, SELFPAY ==
--- NOTE | ~2021-06-11 | XR_ITS ---
EXAMINATION: XR chest 2V EXAM DATE: 06/11/2021 19:44 INDICATION: Severe dry cough headaches x 2days, hx asthma TECHNIQUE: Frontal and lateral projections of the chest obtained and reviewed. There is no prior meghann dy for comparison. FINDINGS: The lungs are clear. There are no pleural effusions. The cardiomediastinal silhouette is within normal limits. There is no pneumothorax suspected. The bones and soft tissues are unremarkab le. IMPRESSION: Unremarkable chest x-ray exam. Reviewed, dictated and finalized at location G.
[2021-06-11 17:55] VITALS: BP 114/75; PULSE 107; RESP 24; TEMP 36.6; O2SAT 95
--- NOTE | 2021-06-11 17:58 | ECG_ITS ---
Measurements Intervals [place] Rate: 96 P: 16 NV: 115 QRS: 57 QRSD: 88 T: 17 QT: 310 QTc: 393 Interpretive Statements SINUS RHYTHM WITH SHORT NV INTERVAL NONSPECIFIC T-WAVE ABNORMALITY ABNORMAL ECG NO PREVIOUS ECG AVAILABLE FOR COMPARISON Electronically Signed On 06-12-2021 13:47:19 CDT by Mark Healy M.D.
[2021-06-11] MEDS: IPRATROPIUM 0.5 MG/ALBUTEROL SULFATE 2.5 MG AMPUL.NEB 3 ML INHALATION (18:24)
[2021-06-11 18:25] VITALS: PULSE 78; RESP 20; O2SAT 96
[2021-06-11 18:33] VITALS: PULSE 84; RESP 20
--- NOTE | 2021-06-11 18:34 | ED.URI ---
HPI - URI/Sore Throat General Chief Complaint: Upper Respiratory Infection Stated Complaint: sleepy, headache, drainage,cough Source: patient Mode of arrival: ambulatory Limitations: no limitations History of Present Illness HPI Narrative: Pt presents with a cough and tightness in her chest for a couple of days. Pt denies fever but feels warm. Pt states son had similar symptoms and a sore throat last week but she doesn't have a sore throat. Pt not vaccinated for covid and not tested positive. MD elicited complaint: cough, rhinorrhea, nasal congestion and sinus pain Severity: mild Description of mucous: yellow Exacerbating factors: nothing Relieving factors: nothing Context: sick contacts Related Data Home Medications Medication Instructions Recorded Confirmed levonorgestrel 20 mcg/24 hours (7 1 insert INTRAUTERINE ONCE 12/12/20 06/11/21 yrs) 52 mg intrauterine device Allergies Allergy/AdvReac Type Severity Reaction Status Date / Time codeine AdvReac Mild Confusion Verified 12/26/20 09:21 Review of Systems Review of Systems: All systems reviewed & are unremarkable except as noted in HPI and below PMFSH Past Medical History Medical History Anemia Anxiety Asthma Chlamydia Cystic fibrosis carrier History of ITP 2013 HPV in female 2012 Vaginal delivery x 3 Surgical History Surgical History [place] teeth extracted Family History Family History Grandparent Cerebrovascular accident Family history of coronary artery disease Other Diabetes mellitus Family history of malignant neoplasm of cervix Family history of malignant neoplasm of ovary Hypertension Social History Social History Smoking status: Current every day smoker Tobacco type: cigarettes Second hand tobacco smoke exposure: Yes Smoking end date: 09/20/20 Alcohol intake: current Alcohol use details: Socially Substance use: never Gender identity (if verbalized by the patient): Female Sexual Orientation (if Verbalized by the Patient): Straight or Heterosexual Spiritual care concerns: No Exam Const: General: no acute distress Orientation/consciousness: patient oriented x3 HENMT: Head: normal to inspection Chest: Chest palpation & inspection: normal inspection of the chest Resp: Effort & Inspection: normal respiratory effort Auscultation: clear to auscultation bilaterally Cardio: Rate: regular rate Rhythm: regular rhythm GI: GI Palp: Yes Soft to palpation Auscultation: normal bowel sounds Skin: General skin exam: normal color Neuro: General: patient oriented x3 and no focal motor deficits Extrem: General: normal to inspection Psych: Appearance: grossly normal Mental Status: mental status grossly normal Thought content: Yes Normal thought content present Course Vital Signs Vital signs: Vital Signs Temperature 97.8 F 06/11/21 17:55 Pulse Rate 107 H 06/11/21 17:55 Respiratory Rate 24 H 06/11/21 17:55 Blood Pressure 114/75 06/11/21 17:55 Pulse Oximetry 95 06/11/21 17:55 Temperature 97.8 F 06/11/21 17:55 Pulse Rate 84 06/11/21 18:33 Respiratory Rate 20 06/11/21 18:33 Blood Pressure 114/75 06/11/21 17:55 Pulse Oximetry 96 06/11/21 18:25 MDM - URI/Sore Throat Lab Data Labs: Lab Results 06/11/21 Range/Units 18:31 SARS-CoV-2 RNA (RT-PCR) Negative (Negative) ECG Data EKG #1: ECG completion date: 06/11/21 ECG completion time: 18:02 EKG Interpretation: normal rate, no ectopy, no ST changes and no acute changes Discharge Plan Discharge Clinical Impression: Bronchitis Patient Disposition: Home, Self-Care Condition: Stable Instructions: Antibiotic Form, Acute Bronchitis (ED) Prescr
[2021-06-11] MEDS: BENZONATATE 100 MG CAPSULE 200 MG PO (19:04)
[2021-06-11 19:11] LABS: SARS-CoV-2 RNA PCR Negative (Negative)
--- NOTE | 2021-06-11 19:16 | PC.NURSE ---
REPORT TO PENELOPE IRENE . NO QUESTIONS OR CONCERNS AT THIS TIME
[2021-06-11] MEDS: AZITHROMYCIN 250 MG TABLET 500 MG PO (19:55)
[2021-06-11] MEDS: predniSONE 40 MG, predniSONE 10 MG 50 MG PO (20:04)
[2021-06-11 20:06] VITALS: BP 105/69; PULSE 100; RESP 20; TEMP 36.6; O2SAT 100
== END 2021-06-11 20:12 | disposition home or self-care (01) ==
PROVIDERS: Emergency Provider Emergency Medicine; PCP Family Medicine
DX: J40 Bronchitis, not specified as acute or chronic (principal); Z20.822 Contact with and (suspected) exposure to COVID-19
CPT/HCPCS: 71046; 93005; 94640; 99283; A9270; C9803; J7512; U0003; U0005

== ENCOUNTER 2022-01-17 10:57 | Outpatient (CLI) | payer OTHER, SELFPAY ==
--- NOTE | ~2022-01-17 | XR_ITS ---
XR_[id number]_CR 01/17/2022 11:23 Indication: Posterior neck pain and numbness Procedure: 5 views of the cervical spine Comparison: No prior studies for comparison. Findings: Vertebral body and disc heights are preserved. Normal cervical alignment. No fracture, subl uxation or dislocation. No prevertebral soft tissue abnormality. Odontoid process is normal. Impression: 1: No significant abnormality of the cervical spine. Reviewed, dictated and finalized at location B. Impression: 1: No significant abnormality of the cervical spine.
== END 2022-01-17 10:58 | disposition home or self-care (01) ==
LOC: CHSIMG 10:59
PROVIDERS: PCP Family Medicine; Visit Provider Physician Assistant
DX: M54.2 Cervicalgia (principal)
CPT/HCPCS: 72040

== ENCOUNTER 2022-01-27 17:59 | Emergency (ER) | payer OTHER, SELFPAY ==
[2022-01-27 18:05] VITALS: BP 89/61; PULSE 81; RESP 16; TEMP 36.3; O2SAT 98
--- NOTE | 2022-01-27 18:33 | ED.DIZZY ---
HPI - Dizziness General Chief Complaint: Dizziness Stated Complaint: blurred and spotty vision, weakness in legs Time Seen by Provider: 01/27/22 18:32 Source: patient Mode of arrival: ambulatory History of Present Illness HPI Narrative: 31-year-old female with anemia, ITP, low blood pressure on midodrine, anxiety presents to the ER with history of -- dizziness which is worse on standing up. The patient describes this as a lightheadedness and legs giving out. This has been going on for the past few years. Patient has been seeing her primary care physician and is scheduled to follow-up with a finance accounting internship. Her dizziness and lightheadedness got worse which prompted her to come to the ER. The patient does not complain of any chest pain or shortness of breath. No Nausea/vomiting/ diarrhea. MD elicited complaint: dizziness and lightheadedness Onset (ago): year(s) Timing: gradual onset Severity: moderate Description: lightheadedness, off-balance and near-syncope History of similar symptoms: Yes Exacerbating factors: change in body position Relieving factors: nothing Associated symptoms: denies other symptoms Related Data Home Medications Medication Instructions Recorded Confirmed buspirone 10 mg tablet 10 mg PO BID 01/27/22 01/27/22 escitalopram oxalate 20 mg tablet 20 mg PO DAILY 01/27/22 01/27/22 midodrine 10 mg tablet 10 mg PO TID 01/27/22 01/27/22 Allergies Allergy/AdvReac Type Severity Reaction Status Date / Time codeine AdvReac Mild Confusion Verified 01/27/22 18:29 Review of Systems Review of Systems: All systems reviewed & are unremarkable except as noted in HPI and below Constitutional: Constitutional: Reports as per HPI and Reports no additional constitutional complaints Eyes: Eyes: Reports as per HPI and Reports no additional eye complaints ENT: Reports system reviewed and no additional complaints, except as documented and Reports as per HPI Cardiovascular: Cardiovascular: Reports as per HPI and Reports no additional cardiovascular complaints Respiratory: Respiratory: Reports as per HPI and Reports no additional respiratory complaints Gastrointestinal: Gastrointestinal: Reports as per HPI and Reports no additional gastrointestinal complaints Genitourinary: Genitourinary: Reports no additional female genitourinary complaints and Reports as per HPI Comments: Musculoskeletal: Musculoskeletal: Reports no additional musculoskeletal complaints and Reports as per HPI Integumentary/Breasts: Skin/Breast: Reports system reviewed and no additional complaints, except as docu and Reports as per HPI Neurologic: Reports system reviewed and no additional complaints, except as documented, Reports as per HPI, Reports dizziness, Reports numbness and Reports weakness Psychiatric: Psychiatric: Reports no additional psychiatric complaints and Reports as per HPI Endocrine: Endocrine: Reports no additional endocrine complaints and Reports as per HPI Hematologic/Lymphatic: Hematologic/Lymphatic: Reports no additional hematologic/lymphatic complaints and Reports as per HPI Allergic/Immunologic: Allergic/Immunologic: Reports no additional allergic/immunologic complaints and Reports as per HPI PMFSH Past Medical History Medical History Anemia Anxiety Asthma Chlamydia Cystic fibrosis carrier History of ITP 2013 HPV in female 2012 Vaginal delivery x 3 Surgical History Surgical History [place] teeth extracted Family History Family History Grandparent Cerebrovascular accident Family history of coronary artery disease Other Diabetes mellitus Family history of malignant neoplasm of cervix Family history of malignant neoplasm of ovary Hypertension Social History Social History (Reviewed 01/27/22 @ 19:02 by Yariel Lopez
--- NOTE | 2022-01-27 18:41 | ECG_ITS ---
Measurements Intervals [place] Rate: 66 P: 0 [place]: 143 QRS: 61 QRSD: 85 T: 19 QT: 389 QTc: 410 Interpretive Statements SINUS RHYTHM BASELINE ARTIFACT- I, II, III NORMAL ECG COMPARED TO ECG 06/11/2021 18:02:35 NO SIGNIFICANT CHANGES Electronically Signed On 01-27-2022 19:53:22 AUTOMOTIVE SERVICE MANAGER by Adrián Adkins D.O.
[2022-01-27 18:50] VITALS: BP 90/50; PULSE 60; RESP 20; O2SAT 97
[2022-01-27 19:06] LABS: Basophils Absolute Auto 0.03 K/mm3 (0.00-0.10); Basophils Percent Auto 0.4 % (0.0-1.0); Eosinophils Absolute Auto 0.07 K/mm3 (0.02-0.50); Hematocrit 36.6 % (35.0-49.0); Hemoglobin 11.9 g/dL (12.0-15.0); Immature Granulocyte Absolute 0.03 K/mm3 (0.00-0.00); Immature Granulocyte Percent A 0.4 % (0.0-0.0); Lymphocytes Absolute Auto 2.27 K/mm3 (1.10-4.50); Lymphocytes Percent Auto 32.9 % (18.0-42.0); Mean Corpuscular HGB Conc 32.5 g/dL (32.0-36.0); Mean Corpuscular Volume 95.3 fL (78.0-102.0); Mean Platelet Volume 12.2 fl (9.2-11.8); Monocytes Absolute Auto 0.45 K/mm3 (0.10-0.90); Monocytes Percent Auto 6.5 % (2.0-11.0); Neutrophils Absolute Auto 4.1 K/mm3 (1.7-7.2); Neutrophils Percent Auto 58.8 % (50.0-70.0); Platelet Count Result 115 K/mm3 (150-420); Red Blood Count 3.84 M/mm3 (4.20-5.40); Red Cell Distribution Width 11.9 % (11.6-14.4); White Blood Count 6.9 K/mm3 (4.8-10.8)
[2022-01-27 19:15] LABS: Appearance Urine Clear (Clear); Bilirubin Urine Negative (Negative); Blood Urine 1+ (Negative); Glucose Urine UA Negative (Negative); Ketones Urine Negative (Negative); Leukocyte Esterase Ur Negative (Negative); Nitrate Urine Negative (Negative); Protein Urine Negative (Negative); Urobilinogen Urine 0.2 mg/dL (0.2-1.0)
[2022-01-27 19:17] LABS: Pregnancy On Board Control Positive; Urine Pregnancy Test Negative
[2022-01-27 19:20] LABS: Prothrombin Time 11.4 Seconds (9.50-12.10)
[2022-01-27 19:25] LABS: Add Urine Microscopic? YES; Bacteria Urine Trace /hpf; Color Urine Light Yellow (Yellow); Mucus Urine Few /lpf; RBC Urine 0-2 /hpf (0-2); Squamous Epithelial Cell Urine Few /hpf (Few); WBC Urine 0-3 /hpf (0-3)
[2022-01-27 19:28] LABS: Lactic Acid Reflex 0.8 mmol/L (0.4-2.0)
[2022-01-27 19:32] LABS: Alanine Aminotransferase 13 U/L (14-59); Albumin Level 3.7 g/dL (3.4-5.0); Alkaline Phosphatase 48 U/L (46-116); Anion Gap 6 mmol/L (8-16); Aspartate Amino Transferase 11 U/L (15-37); Bilirubin,Total 0.4 mg/dL (0.00-1.00); Blood Urea Nitrogen 9 mg/dL (7-18); Calcium 8.9 mg/dL (8.5-10.1); Carbon Dioxide 27 mmol/L (21-32); Chloride 106 mmol/L (98-108); Estimated CRCL calculation 58 ml/min; Estimated Glomerular Filt Rate > 60; Glucose 85 mg/dL (70-99); Lipase 73 U/L (73-393); Osmolality Calculated 285 mOsm/kg (285-295); Potassium 3.8 mmol/L (3.5-5.1); Sodium 139 mmol/L (136-145); Thyroid Stimulating Hormone 1.39 uIU/mL (0.36-3.74)
[2022-01-27 19:34] LABS: Troponin I < 4.0 ng/L (0.00-60.4)
[2022-01-27 19:35] VITALS: BP 91/67; PULSE 82; RESP 16
[2022-01-27 20:05] VITALS: BP 102/64; PULSE 80; RESP 18
[2022-01-27 20:08] VITALS: BP 81/60; PULSE 84; RESP 20
[2022-01-27 20:20] VITALS: BP 92/60; PULSE 88; RESP 18; TEMP 37.2; O2SAT 98
== END 2022-01-27 20:24 | disposition home or self-care (01) ==
PROVIDERS: Emergency Provider Internal Medicine Critical Care Medicine; PCP Physician Assistant
DX: I95.1 Orthostatic hypotension (principal); R42 Dizziness and giddiness
CPT/HCPCS: 36415; 80053; 81001; 81025; 83605; 83690; 84443; 84484; 85025; 85610; 93005; 99284

== ENCOUNTER 2022-07-24 09:19 | Emergency (ER) | payer OTHER, SELFPAY ==
--- NOTE | ~2022-07-24 | XR_ITS ---
EXAMINATION: XR knee LT 3V DATE: 07/24/2022 10:01 INDICATION: Anterior left knee pain post fall TECHNIQUE: AP, lateral and sunrise views of the of the left knee were obtained COMPARISON: None. FINDINGS: Alignment is normal. No fracture. Joint spaces are normal. No joint effusion. Mild soft tissue swell ing anterior to the inferior patella. IMPRESSION: 1. Prepatellar soft tissue swelling. No left knee joint effusion or osseous normality. Reviewed, dictated and finalized at location L. IMPRESSION: 1. Prepatellar soft tissue swelling. No left knee joint effusion or osseous nor mality.
[2022-07-24 09:19] VITALS: BP 92/54; PULSE 83; RESP 18; TEMP 36.3; O2SAT 100
[2022-07-24] MEDS: IBUPROFEN 600 MG TABLET PO (10:01)
--- NOTE | 2022-07-24 10:13 | ED.FALL ---
HPI - Fall General Chief Complaint: Fall Stated Complaint: fall/ knee pain Time Seen by Provider: 07/24/22 09:25 Source: patient Mode of arrival: ambulatory Limitations: no limitations History of Present Illness HPI Narrative: this is a 31-year-old female that had a fall early this morning after she was chasing after her dog and she stepped in a pothole twisting her right ankle but falling onto her left knee causing pain swelling and tenderness with movement. Otherwise no numbness or tingling no other injuries. complaint: fall Onset (ago): hour(s) Fall from: standing Related Data Home Medications Medication Instructions Recorded Confirmed buspirone 10 mg tablet 10 mg PO BID 01/27/22 07/24/22 escitalopram oxalate 20 mg tablet 20 mg PO DAILY 01/27/22 07/24/22 midodrine 10 mg tablet 10 mg PO TID 01/27/22 07/24/22 metoprolol succinate 25 mg 25 mg PO DAILY 07/24/22 07/24/22 tablet,extended release 24 hr Allergies Allergy/AdvReac Type Severity Reaction Status Date / Time codeine AdvReac Mild Confusion Verified 07/24/22 09:30 Review of Systems Review of Systems: All systems reviewed & are unremarkable except as noted in HPI and below PMFSH Past Medical History Medical History Anemia Anxiety Asthma Chlamydia Cystic fibrosis carrier History of ITP 2013 HPV in female 2012 Vaginal delivery x 3 Surgical History Surgical History [place] teeth extracted Family History Family History Grandparent Cerebrovascular accident Family history of coronary artery disease Other Diabetes mellitus Family history of malignant neoplasm of cervix Family history of malignant neoplasm of ovary Hypertension Social History Social History Smoking status: Current every day smoker Tobacco type: cigarettes Second hand tobacco smoke exposure: Yes Smoking end date: 09/20/20 Alcohol intake: current Alcohol use details: Socially Substance use: never Gender identity (if verbalized by the patient): Female Sexual Orientation (if Verbalized by the Patient): Straight or Heterosexual Spiritual care concerns: No Exam Const: General: healthy appearing Nutritional Appearance: well nourished Orientation/consciousness: patient oriented x3 Limitations: no limitations HENMT: Face and sinus: normal facial exam Mouth: Yes Normal oral and palatal mucosa present Eyes: Conjunctivae: conjunctivae normal Neck: Neck: normal visual inspection Chest: Chest palpation & inspection: normal inspection of the chest Resp: Effort & Inspection: normal respiratory effort Auscultation: clear to auscultation bilaterally Cardio: Rate: regular rate GI: Auscultation: normal bowel sounds Skin: General skin exam: normal color Rashes: no rashes Wounds: no wounds Neuro: General: patient oriented x3 Cranial nerves: Yes Nystagmus not present Extrem: Other: Tender anterior surface of her left knee with palpation and movement with mild swelling. Psych: Mental Status: mental status grossly normal Course Course Emergency Course: Patient received a dose of Motrin 600mg p.o., x-ray reviewed and no acute fractures S wrap was applied. Vital Signs Vital signs: Vital Signs Temperature 36.3 C L 07/24/22 09:19 Pulse Rate 83 07/24/22 09:19 Respiratory Rate 18 07/24/22 09:19 Blood Pressure 92/54 L 07/24/22 09:19 Pulse Oximetry 100 07/24/22 09:19 Oxygen Delivery Room Air 07/24/22 09:19 Temperature 36.3 C L 07/24/22 09:19 Pulse Rate 83 07/24/22 09:19 Respiratory Rate 18 07/24/22 09:19 Blood Pressure 92/54 L 07/24/22 09:19 Pulse Oximetry 100 07/24/22 09:19 Oxygen Delivery Room Air 07/24/22 09:19 Critical Care Time Critical Care Time Critical
[2022-07-24 10:39] VITALS: BP 85/60; PULSE 74; RESP 20; TEMP 36.7; O2SAT 100
== END 2022-07-24 10:47 | disposition home or self-care (01) ==
PROVIDERS: Emergency Provider Emergency Medicine; PCP Physician Assistant
DX: S83.8X2A Sprain of other specified parts of left knee, initial encounter (principal); F41.9 Anxiety disorder, unspecified; F17.210 Nicotine dependence, cigarettes, uncomplicated; W18.39XA Other fall on same level, initial encounter
CPT/HCPCS: 73562; 99283; A9270

== ENCOUNTER 2022-11-05 16:02 | Outpatient (CLI) | payer OTHER, SELFPAY ==
--- NOTE | ~2022-11-05 | XR_ITS ---
EXAM: XR hand RT min 3V DATE: 11/05/2022 16:32 HISTORY: FALL 3 MONTHS AGO/PAIN IN 1ST DIGIT . COMPARISON: None available. FINDINGS: Normal mineralization. No fracture or dislocation. No lytic or blastic lesion. Joint space s are maintained. No erosion or periosteal change. Soft tissues within normal limits. IMPRESSION: Unremarkable right hand radiograph findings. Reviewed, dictated and finalized at location K.
--- NOTE | ~2022-11-05 | XR_ITS ---
EXAM: XR elbow LT min 3V DATE: 11/05/2022 16:32 HISTORY: FALL 3 MONTHS AGO/PAIN ON EXTENSION . COMPARISON: None available. FINDINGS: Normal mineralization. No fracture or dislocation. No lytic or blastic lesion. Joint space s are maintained. No erosion or periosteal change. Soft tissues within normal limits. IMPRESSION: Unremarkable left elbow radiograph findings. Reviewed, dictated and finalized at location K.
[2022-11-05 16:17] LABS: Basophils Absolute Auto 0.03 K/mm3 (0.00-0.10); Basophils Percent Auto 0.4 % (0.0-1.0); Eosinophils Absolute Auto 0.09 K/mm3 (0.02-0.50); Eosinophils Percent Auto 1.1 % (1.0-6.0); Hematocrit 37.5 % (35.0-49.0); Hemoglobin 12.3 g/dL (12.0-15.0); Immature Granulocyte Absolute 0.02 K/mm3 (0.00-0.00); Immature Granulocyte Percent A 0.3 % (0.0-0.0); Lymphocytes Absolute Auto 2.66 K/mm3 (1.10-4.50); Lymphocytes Percent Auto 33.8 % (18.0-42.0); Mean Corpuscular HGB Conc 32.8 g/dL (32.0-36.0); Mean Corpuscular Hemoglobin 32.3 pg (27.0-31.0); Mean Corpuscular Volume 98.4 fL (78.0-102.0); Mean Platelet Volume 12.2 fl (9.2-11.8); Monocytes Absolute Auto 0.43 K/mm3 (0.10-0.90); Monocytes Percent Auto 5.5 % (2.0-11.0); Neutrophils Absolute Auto 4.6 K/mm3 (1.7-7.2); Neutrophils Percent Auto 58.9 % (50.0-70.0); Platelet Count Result 135 K/mm3 (150-420); Red Blood Count 3.81 M/mm3 (4.20-5.40); Red Cell Distribution Width 12.1 % (11.6-14.4); White Blood Count 7.9 K/mm3 (4.8-10.8)
[2022-11-05 16:54] LABS: Alanine Aminotransferase 12 U/L (14-59); Albumin Level 3.7 g/dL (3.4-5.0); Alkaline Phosphatase 63 U/L (46-116); Anion Gap 8 mmol/L (8-16); Aspartate Amino Transferase 14 U/L (15-37); Bilirubin,Total 0.4 mg/dL (0.00-1.00); Blood Urea Nitrogen 13 mg/dL (7-18); Calcium 8.7 mg/dL (8.5-10.1); Carbon Dioxide 29 mmol/L (21-32); Chloride 104 mmol/L (98-108); Cholesterol 148 mg/dL (0-200); Estimated Glomerular Filt Rate > 60; Glucose 93 mg/dL (70-99); HDL Direct 42 mg/dL (40-60); LDL Cholesterol Calculated 95 mg/dL (<130); Osmolality Calculated 292 mOsm/kg (285-295); Potassium 4.3 mmol/L (3.5-5.1); Sodium 141 mmol/L (136-145); Total Protein 7.1 g/dL (6.4-8.2); Triglycerides 55 mg/dL (0-150)
== END 2022-11-05 16:03 | disposition home or self-care (01) ==
LOC: CHSLAB 16:04
PROVIDERS: PCP Physician Assistant; Visit Provider Registered Nurse
DX: M25.522 Pain in left elbow (principal); M79.644 Pain in right finger(s)
CPT/HCPCS: 36415; 73080; 73130; 80053; 80061; 85025

== ENCOUNTER 2022-11-17 15:34 | Outpatient (RCR) | payer OTHER, SELFPAY ==
--- NOTE | 2022-11-18 09:17 | BUOTOPEVAL ---
Assessment and note entered by Nola Jauregui, OT Evaluation Information Assessment Status Evaluation Diagnosis R thumb pain Onset 2 months ago Subjective Information The patient stated that there are times where she has no pain when at rest. The patient always has pain during activity with B UE. The patient stated she could not open a pickle jar with R hand. She stated she is right handed and also has a difficult time driving. Reported Pain Level Pain Score 0,2: Self Report Assessment OT Clinical Summary The patient is a 31 year old female who was referred to outpatient OT due to R thumb pain following a fall two months ago. The patient demonstrated WNL AROM and strength, WNL supervisor border department strength and no pain prior to start of injury. The patient now demonstrates significantly impaired pain, moderately impaired supervisor border department and UE strength and requires skilled OT to address these deficits to return to PLOF and improve independence without pain. Plan of Care Interventions Therapeutic Exercise,Manual Therapy,Neuro Re- education,Therapeutic Activities,Hot Pack/Cold Pack,Electrical Stimulation,Sensory Integrative Techn,Self-Care/Home Management OT Services Indicated Yes Treatment Frequency and 1-2x/week for 10 visits. Duration These treatments will address the objective and functional deficits as defined above. The patient will be advanced safely and appropriately in order for the patient to progress towards his/her prior level of function. Additional exercises will be introduced and as well as a comprehensive home exercise program upon discharge, if needed, ?to ensure carryover of functional gains achieved in the clinic. This treatment plan has been reviewed and agreement upon by the patient.
== END 2022-11-17 20:00 | disposition home or self-care (01) ==
LOC: CHSOT 15:34
PROVIDERS: PCP Family Medicine; Visit Provider Registered Nurse
DX: M79.644 Pain in right finger(s) (principal)
CPT/HCPCS: 97165

== ENCOUNTER 2023-01-31 17:36 | Emergency (ER) | payer OTHER, SELFPAY ==
[2023-01-31 17:38] VITALS: BP 98/73; PULSE 73; RESP 17; TEMP 36.4; O2SAT 99
--- NOTE | 2023-01-31 17:41 | ECG_ITS ---
Measurements Intervals [place] Rate: 67 P: 0 [place]: 144 QRS: 49 QRSD: 68 T: 35 QT: 374 QTc: 396 Interpretive Statements SINUS RHYTHM BASELINE ARTIFACT- I, III, AVR, AVL, AVF, V4-V6 NORMAL ECG COMPARED TO ECG 01/27/2022 18:49:00 NO SIGNIFICANT CHANGES Electronically Signed On 02-01-2023 6:30:14 BASIN TENDER by Adrián Adkins D.O.
[2023-01-31 17:45] VITALS: BP 94/74; PULSE 64; RESP 17; O2SAT 98
[2023-01-31 17:58] LABS: Basophils Absolute Auto 0.03 K/mm3 (0.00-0.10); Basophils Percent Auto 0.4 % (0.0-1.0); Eosinophils Absolute Auto 0.13 K/mm3 (0.02-0.50); Eosinophils Percent Auto 1.6 % (1.0-6.0); Hemoglobin 12.7 g/dL (12.0-15.0); Immature Granulocyte Absolute 0.02 K/mm3 (0.00-0.00); Immature Granulocyte Percent A 0.2 % (0.0-0.0); Lymphocytes Absolute Auto 2.35 K/mm3 (1.10-4.50); Lymphocytes Percent Auto 29.2 % (18.0-42.0); Mean Corpuscular HGB Conc 32.6 g/dL (32.0-36.0); Mean Corpuscular Hemoglobin 31.6 pg (27.0-31.0); Mean Platelet Volume 12.3 fl (9.2-11.8); Monocytes Percent Auto 6.2 % (2.0-11.0); Neutrophils Percent Auto 62.4 % (50.0-70.0); Platelet Count Result 145 K/mm3 (150-420); Red Blood Count 4.02 M/mm3 (4.20-5.40); Red Cell Distribution Width 12.1 % (11.6-14.4); White Blood Count 8.1 K/mm3 (4.8-10.8)
--- NOTE | 2023-01-31 18:05 | ED.DIZZY ---
HPI - Dizziness General Chief Complaint: Syncope Stated Complaint: fainted at home Time Seen by Provider: 01/31/23 17:41 Source: patient and family Mode of arrival: ambulatory Limitations: no limitations History of Present Illness HPI Narrative: This is a 32-year-old female that had a near syncopal episode, dizziness and lightheaded, has had similar episodes in the and has been hypotensive has seen her ferryboat operator or primary and has been on might a and Florinef. Patient is also taking metoprolol. Otherwise she is nauseated no vomiting no chest pain no shortness of breath no or blurry vision no dysuria no flank pain no abdominal pain no diarrhea or constipation. MD elicited complaint: dizziness, lightheadedness and near syncope Onset (ago): hour(s) Severity: mild Related Data Home Medications Medication Instructions Recorded Confirmed buspirone 10 mg tablet 10 mg PO BID 01/27/22 01/31/23 escitalopram oxalate 20 mg tablet 20 mg PO DAILY 01/27/22 01/31/23 midodrine 10 mg tablet 10 mg PO TID 01/27/22 01/31/23 metoprolol succinate 25 mg 25 mg PO DAILY 07/24/22 01/31/23 tablet,extended release 24 hr Allergies Allergy/AdvReac Type Severity Reaction Status Date / Time codeine AdvReac Mild Confusion Verified 01/31/23 17:37 Review of Systems Review of Systems: All systems reviewed & are unremarkable except as noted in HPI and below PMFSH Past Medical History Medical History Anemia Anxiety Asthma Chlamydia Cystic fibrosis carrier History of ITP 2013 HPV in female 2012 Vaginal delivery x 3 Surgical History Surgical History [place] teeth extracted Family History Family History Grandparent Cerebrovascular accident Family history of coronary artery disease Other Diabetes mellitus Family history of malignant neoplasm of cervix Family history of malignant neoplasm of ovary Hypertension Social History Social History Smoking status: Current every day smoker Tobacco type: cigarettes Second hand tobacco smoke exposure: Yes Smoking end date: 09/20/20 Alcohol intake: current Alcohol use details: Socially Substance use: never Gender identity (if verbalized by the patient): Female Sexual Orientation (if Verbalized by the Patient): Straight or Heterosexual Spiritual care concerns: No Exam Const: General: healthy appearing Nutritional Appearance: well nourished Orientation/consciousness: patient oriented x3 Limitations: no limitations HENMT: Head: normal to inspection Eyes: Conjunctivae: conjunctivae normal Pupils: Equal, round and reactive pupils present EOM: EOMs intact bilaterally Neck: Neck: normal visual inspection, no lymphadenopathy and no meningeal signs Chest: Chest palpation & inspection: normal inspection of the chest Resp: Effort & Inspection: normal respiratory effort Auscultation: clear to auscultation bilaterally Cardio: Rate: regular rate Rhythm: regular rhythm GI: Auscultation: normal bowel sounds Skin: General skin exam: normal color Rashes: no rashes Neuro: General: patient oriented x3, moves all extremities and no meningeal signs Speech: normal speech Course Course Emergency Course: Patient does have some orthostatic changes, has been taking metoprolol and advised patient to discontinue or hold her metoprolol tells he sees her primary care physician or her ferryboat operator, and can continue her mind to drain. Otherwise EKG is normal sinus rhythm with a heart rate of 67, labs reviewed and within normal limits. Patient with some mild nausea and administered a dose of Zofran. Otherwise currently doing well with no headaches no chest pain no blurry vision. Vital Signs Vital signs: Vital Signs Temperature 36.4 C 01/31/23
[2023-01-31 18:11] LABS: Alanine Aminotransferase 21 U/L (14-59); Albumin Level 3.3 g/dL (3.4-5.0); Alkaline Phosphatase 83 U/L (46-116); Anion Gap 5 mmol/L (8-16); Aspartate Amino Transferase 13 U/L (15-37); Bilirubin,Total 0.4 mg/dL (0.00-1.00); Blood Urea Nitrogen 15 mg/dL (7-18); Calcium 8.5 mg/dL (8.5-10.1); Carbon Dioxide 32 mmol/L (21-32); Chloride 102 mmol/L (98-108); Creatine Kinase 71 U/L (26-192); Estimated Glomerular Filt Rate > 60; Glucose 100 mg/dL (70-99); Osmolality Calculated 288 mOsm/kg (285-295); Potassium 4.2 mmol/L (3.5-5.1); Sodium 139 mmol/L (136-145); Total Protein 7.3 g/dL (6.4-8.2)
[2023-01-31] MEDS: ONDANSETRON HCL ODT 4 MG TABLET PO (18:14)
[2023-01-31 18:16] LABS: Lactic Acid Reflex 0.6 mmol/L (0.4-2.0)
[2023-01-31 18:17] VITALS: BP 99/75; PULSE 69; RESP 16; O2SAT 97
[2023-01-31 18:26] VITALS: BP 99/75; PULSE 65; RESP 17; TEMP 36.6; O2SAT 98
== END 2023-01-31 18:26 | disposition home or self-care (01) ==
PROVIDERS: Emergency Provider Emergency Medicine; PCP Physician Assistant
DX: I95.1 Orthostatic hypotension (principal); F41.9 Anxiety disorder, unspecified; F17.210 Nicotine dependence, cigarettes, uncomplicated
CPT/HCPCS: 36415; 80053; 82550; 83605; 85025; 93005; 99283; A9270

== ENCOUNTER 2023-02-23 13:14 | Outpatient (CLI) | payer OTHER, SELFPAY ==
[2023-02-23 13:29] LABS: Basophils Absolute Auto 0.04 K/mm3 (0.00-0.10); Basophils Percent Auto 0.5 % (0.0-1.0); Eosinophils Absolute Auto 0.11 K/mm3 (0.02-0.50); Eosinophils Percent Auto 1.4 % (1.0-6.0); Hematocrit 41.5 % (35.0-49.0); Immature Granulocyte Absolute 0.01 K/mm3 (0.00-0.00); Immature Granulocyte Percent A 0.1 % (0.0-0.0); Lymphocytes Absolute Auto 2.49 K/mm3 (1.10-4.50); Lymphocytes Percent Auto 30.8 % (18.0-42.0); Mean Corpuscular HGB Conc 31.3 g/dL (32.0-36.0); Mean Corpuscular Hemoglobin 31.1 pg (27.0-31.0); Mean Corpuscular Volume 99.3 fL (78.0-102.0); Mean Platelet Volume 12.6 fl (9.2-11.8); Monocytes Absolute Auto 0.43 K/mm3 (0.10-0.90); Monocytes Percent Auto 5.3 % (2.0-11.0); Neutrophils Percent Auto 61.9 % (50.0-70.0); Platelet Count Result 141 K/mm3 (150-420); Red Blood Count 4.18 M/mm3 (4.20-5.40); Red Cell Distribution Width 12.8 % (11.6-14.4); White Blood Count 8.1 K/mm3 (4.8-10.8)
[2023-02-23 13:58] LABS: Alanine Aminotransferase 23 U/L (14-59); Albumin Level 3.6 g/dL (3.4-5.0); Alkaline Phosphatase 63 U/L (46-116); Anion Gap 5 mmol/L (8-16); Aspartate Amino Transferase 15 U/L (15-37); Bilirubin,Total 0.3 mg/dL (0.00-1.00); Blood Urea Nitrogen 12 mg/dL (7-18); Calcium 8.5 mg/dL (8.5-10.1); Carbon Dioxide 33 mmol/L (21-32); Chloride 103 mmol/L (98-108); Cholesterol 156 mg/dL (0-200); Estimated Glomerular Filt Rate > 60; Glucose 94 mg/dL (70-99); HDL Direct 35 mg/dL (40-60); LDL Cholesterol Calculated 101 mg/dL (<130); Osmolality Calculated 291 mOsm/kg (285-295); Potassium 3.8 mmol/L (3.5-5.1); Sodium 141 mmol/L (136-145); Total Protein 7.4 g/dL (6.4-8.2); Triglycerides 100 mg/dL (0-150)
[2023-02-26 22:05] LABS: Anti Cyclic Citrullinated Pept <16 Units (<20)
== END 2023-02-23 13:15 | disposition home or self-care (01) ==
LOC: CHSLAB 13:16
PROVIDERS: PCP Physician Assistant; Visit Provider Physician Assistant
DX: D69.3 Immune thrombocytopenic purpura (principal); I95.1 Orthostatic hypotension; E78.00 Pure hypercholesterolemia, unspecified; M25.50 Pain in unspecified joint
CPT/HCPCS: 36415; 80053; 80061; 85025; 86038; 86200

== ENCOUNTER 2023-03-17 12:20 | Emergency (ER) | payer OTHER, SELFPAY ==
[2023-03-17] VITALS (8 sets, daily range): BP systolic 76–108; BP diastolic 52–69; PULSE 59–78; RESP 12–16; TEMP 36.4–36.9; O2SAT 99–100
--- NOTE | ~2023-03-17 | CT_ITS ---
EXAMINATION: CTA chest PE protocol DATE: 03/17/2023 19:05 INDICATION: elevated d-dimer, syncope TECHNIQUE: Computed tomography angiography (CTA) of the chest was performed with 100 mL Omnipaque-350 intravenous contrast timed to evaluate the pulmonary arteries. Coronal maximum intensity projection 3D-reconstructions were created by the technologist. The dose-length product (DLP) was 333.85 mGy-cm. Automated exposure control and iterative reconstruction technique were employed. COMPARISON: None. FINDINGS: Lung parenchyma and airways: Clear. Pleura: Unremarkable. Thoracic inlet, axillae and chest wall: Unremarkable. Thoracic aorta: Normal. Mediastinum: Normal. Heart and pericardium: Normal. Coronary artery calcifications: Absent. Upper abdomen: No significant finding. Bones: No acute osseous finding. Pulmonary arteries: Study quality: Adequate. No pulmonary emboli detected. IMPRESSION: No CT evidence of acute pulmonary embolus. No acute intrathoracic process detected. Reviewed, dictated and finalized at location K. ER VARNISHER IMPRESSION: No CT evidence of acute pulmonary embolus. No acute intrathoracic process detec debbie.
--- NOTE | 2023-03-17 13:13 | ED.SYNCOPE ---
HPI - Syncope General Chief Complaint: Syncope <Tamera Juarez APRN - Last Filed: 03/17/23 13:17> Stated Complaint: syncope <Tamera Juarez APRN - Last Filed: 03/17/23 13:17> Time Seen by Provider: 03/17/23 18:28 <Tamera Juarez APRN - Last Filed: 03/17/23 13:17> Source: patient and family (mother) <Tamera Juarez APRN - Last Filed: 03/17/23 13:17> RN notes reviewed and old records reviewed <Anay Rolle MD - Last Filed: 03/17/23 22:45> Mode of arrival: wheelchair <Tamera Juarez APRN - Last Filed: 03/17/23 13:17> Limitations: no limitations <Tamera Juarez APRN - Last Filed: 03/17/23 13:17> History of Present Illness HPI narrative: Patient is a 32-year-old female past medical history as noted below including POTS who presents emergency department today for evaluation after having a syncopal episode. Patient states that this morning she was not feeling well, she has been taking her blood pressure. Her BP was 76/44 at 1022 this morning. she states she passed out and her vision went black. she has been having CP/SOB as well but this is with her anxiety and is not associated with this episode today. she is being worked up for an autoimmune disease. she only takes fludrocortisone for her BP. she did drink and eat this morning. right now she states she just feels foggy <Tamera Juarez APRN - Last Filed: 03/17/23 13:17> Patient is a 32-year-old female past medical history as noted below including POTS who presents emergency department today for evaluation after having a syncopal episode. Patient states that this morning she was not feeling well, she has been taking her blood pressure. Her BP was 76/44 at 1022 this morning. she states she passed out and her vision went black. she has been having CP/SOB as well but this is with her anxiety and is not associated with this episode today. she is being worked up for an autoimmune disease. she only takes fludrocortisone for her BP. she did drink and eat this morning. right now she states she just feels foggy Patient states she was seen in ER last month for similar episode of passing with low blood pressure. She states she is being treated for POTS by her grid caster Dr. Scott. She was started midodrine by ER physician 6 weeks ago but her grid caster stopped her midrodrine. She takes florinef and her grid caster increased her dose to 0.2 1 month ago. She states she is still having episodes. She denies nausea, vomiting, diarrhea. <Anay Rolle MD - Last Filed: 03/17/23 22:45> Related Data Home Medications: Home Medications Medication Instructions Recorded Confirmed buspirone 10 mg tablet 10 mg PO BID 01/27/22 01/31/23 escitalopram oxalate 20 mg tablet 20 mg PO DAILY 01/27/22 01/31/23 midodrine 10 mg tablet 10 mg PO TID 01/27/22 01/31/23 metoprolol succinate 25 mg 25 mg PO DAILY 07/24/22 01/31/23 tablet,extended release 24 hr <Tamera Juarez APRN - Last Filed: 03/17/23 13:17> Allergies/Adverse Reactions: Allergies Allergy/AdvReac Type Severity Reaction Status Date / Time codeine AdvReac Mild Confusion Verified 03/17/23 18:49 <Tamera Juarez REFORESTATION WORKER - Last Filed: 03/17/23 13:17> Review of Systems Constitutional: Constitutional: Reports fatigue and Denies weakness <Anay Rolle MD - Last Filed: 03/17/23 22:45> Cardiovascular: Cardiovascular: Reports syncope, Denies rapid heart rate, Denies irregular heart rhythm, Denies leg edema and Denies dyspnea <Anay Rolle MD - Last Filed: 03/17/23 22:45> Respiratory: Respiratory: Denies chest congestion, Denies hemoptysis, Denies excessive phlegm production and Denies dyspnea <Anay Rolle MD - Last Filed: 03/17/23 22:45> Gastrointestinal: Gastrointestinal: Denies abdominal pain, Denies hematochezia, Denies diarrhea and Denies vomiting <Anay Rolle MD - Last Filed: 03/17/23 22:45> Genitourinary: Genitourinary: Denies hematuria a
--- NOTE | 2023-03-17 13:17 | ECG_ITS ---
Measurements Intervals [place] Rate: 60 P: 8 [place]: 142 QRS: 40 QRSD: 86 T: 29 QT: 399 QTc: 400 Interpretive Statements SINUS RHYTHM COMPARED TO ECG 01/31/2023 17:48:47 NO SIGNIFICANT CHANGES Electronically Signed On 03-17-2023 16:08:02 PRODUCER by Paul Lynch M.D.
[2023-03-17 14:25] LABS: Basophils Percent Auto 0.4 % (0.2-1.2); Eosinophils Absolute Auto 0.1 K/mm3 (0-0.3); Eosinophils Percent Auto 0.9 % (0-4.4); Hematocrit 40.4 % (37.0-47.0); Hemoglobin 12.4 g/dL (12.0-15.0); Immature Granulocyte Absolute 0.01 K/mm3 (0.00-0.031); Immature Granulocyte Percent A 0.1 % (0-0.5); Lymphocytes Absolute Auto 2.14 K/mm3 (0.9-3.2); Lymphocytes Percent Auto 27.9 % (18.3-44.2); Mean Corpuscular HGB Conc 30.7 g/dl (32-36); Mean Corpuscular Hemoglobin 30.9 pg (26-34); Mean Corpuscular Volume 100.7 fl (80-100); Mean Platelet Volume 12.6 fl (7.4-10.4); Monocytes Absolute Auto 0.5 K/mm3 (0.1-0.6); Monocytes Percent Auto 6.4 % (2.6-8.5); Neutrophils Absolute Auto 4.9 K/mm3 (1.3-6.7); Neutrophils Percent Auto 64.3 % (45.5-73.1); Platelet Count Result 125 k/mm3 (150-375); Red Blood Count 4.01 M/mm3 (4.2-5.4); Red Cell Distribution Width 12.3 % (11.5-14.5); White Blood Count 7.7 K/mm3 (4.5-10.0)
[2023-03-17 14:44] LABS: D Dimer 1.16 ug/mL (<0.48)
[2023-03-17 14:46] LABS: Alanine Aminotransferase 13 U/L (6-35); Albumin Level 3.9 g/dL (3.5-5.1); Alkaline Phosphatase 62 U/L (38-126); Anion Gap 8 mmol/L (8-16); Aspartate Amino Transferase 21 U/L (14-36); Bilirubin,Total 0.6 mg/dL (0.2-1.3); Blood Urea Nitrogen 9 mg/dL (7-17); Calcium 8.8 mg/dL (8.4-10.2); Carbon Dioxide 27 mmol/L (22-30); Chloride 105 mmol/L (98-107); Estimated Glomerular Filt Rate > 60; Glucose 72 mg/dL (65-110); Potassium 3.9 mmol/L (3.4-5.0); Sodium 140 mmol/L (137-145)
[2023-03-17 14:47] LABS: Magnesium 2.1 mg/dL (1.6-2.3)
[2023-03-17 14:58] LABS: Troponin I < 0.012 ng/mL (0.000-0.034)
[2023-03-17 16:22] LABS: Appearance Urine Cloudy (Clear); Bacteria Urine 2+ /hpf; Bilirubin Urine Negative (Negative); Blood Urine Negative (Negative); Color Urine Yellow (Yellow); Glucose Urine UA Negative (Negative); Ketones Urine Trace mg/dL (Negative); Leukocyte Esterase Ur 2+ LEU/UL (Negative); Nitrate Urine Negative (Negative); Non Pathogenic Casts 0-2; Protein Urine Negative (Negative); Specific Grav Ur 1.013 (1.001-1.035); Squamous Epithelial Cell Urine Moderate /hpf (Few); Urobilinogen Urine 0.2 mg/dL (<2.0); WBC Urine 21-50 /hpf; pH Urine 6.5 (5.0-9.0)
[2023-03-17 16:26] LABS: Add Urine Microscopic? YES
--- NOTE | 2023-03-17 18:09 | PC.NURSE ---
pt reports she is having palpitations
[2023-03-17] MEDS: SODIUM CHLORIDE 0.9% IV 1,000 ML 999 ML IV CONT (18:50)
--- NOTE | 2023-03-17 19:15 | PC.NURSE ---
BSSR given to Hugh NEGRETE
[2023-03-17] MEDS: FLUDROCORTISONE ACETATE 0.1 MG TABLET PO (20:15)
[2023-03-17] MEDS: LACTATED RINGERS 1,000 ML 999 ML IV CONT (21:00)
--- NOTE | 2023-03-17 22:03 | PC.NURSE ---
Patient stated she did not want to wait until her LR was finished.
== END 2023-03-17 22:05 | disposition home or self-care (01) ==
PROVIDERS: Nurse Practitioner; Emergency Provider General Practice; PCP Physician Assistant
DX: G90.A Postural orthostatic tachycardia syndrome [POTS] (principal); E86.0 Dehydration; Z14.1 Cystic fibrosis carrier; F41.9 Anxiety disorder, unspecified; F17.210 Nicotine dependence, cigarettes, uncomplicated
CPT/HCPCS: 36415; 71275; 80053; 81001; 81025; 83735; 84484; 85025; 85380; 87086; 87088; 93005; 96360; 96361; 99284; A9270; J7030; J7120; Q9967

== ENCOUNTER 2023-09-10 12:43 | Outpatient (CLI) | payer OTHER, SELFPAY ==
--- NOTE | ~2023-09-10 | US_ITS ---
US pelvic complete w TV Ordering provider: Stephen Crain, [employer] [employer] History: . PELVIC PAIN . Comparison: None. Technique: Transabdominal and endovaginal ultrasound of the pelvis (Doppler ultrasound interrogation techniques used as needed for this exam.) FINDINGS: CERVIX: Normal. UTERUS: Measures 12x 5.5x 4.5 cm in length which is within normal limits and is anteverted. No myome trial masses. Hypoechoic area in the cervix most likely nabothian cyst. ENDOMETRIUM: Normal in thickness measuring 9.5 mm. Fluid is seen in the endometrial cavity. IUD is al so noted. No endometrial masses, or cysts. CUL DE SAC: No free fluid. RIGHT OVARY: Normal in size measuring 4x 3.6x 2.9 Normal echotexture. Doppler vascular flow present. Cyst is seen measuring 3.1x 2.8x 2.4 cm. LEFT OVARY: Normal in size measuring 3.4x 1.9x 1.9 cm . Normal echotexture. Doppler vascular flow pr esent. Left ovarian cyst is seen measuring 1.6 x 1.1 x 1.7 cm. ADNEXA: Normal. No mass. IMPRESSION: Fluid in the endometrial cavity. Bilateral ovarian cysts. IUD is seen in the uterus. Otherwise, david l pelvic ultrasound. Reviewed, dictated and finalized at location A. IMPRESSION: Fluid in the endometrial cavity. Bilateral ovarian cysts. IUD is seen in the ut erus. Otherwise, normal pelvic ultrasound.
== END 2023-09-10 12:44 | disposition home or self-care (01) ==
LOC: CHSIMG 12:44
PROVIDERS: PCP Physician Assistant; Visit Provider Registered Nurse
DX: R10.2 Pelvic and perineal pain (principal); N83.202 Unspecified ovarian cyst, left side; N83.201 Unspecified ovarian cyst, right side; Z97.5 Presence of (intrauterine) contraceptive device
CPT/HCPCS: 76830; 76856

== ENCOUNTER 2023-10-11 05:01 | Emergency (ER) | payer OTHER, SELFPAY ==
[2023-10-11] VITALS (70 sets, daily range): BP systolic 86–112; BP diastolic 47–77; PULSE 59–96; RESP 12–22; TEMP 36.4; O2SAT 92–100
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
--- NOTE | 2023-10-11 05:16 | ECG_ITS ---
Test Date: 2023-10-11 05:20:45 Measurements Intervals [place] Rate: 81 P: 38 [place]: 160 QRS: 36 QRSD: 85 T: 12 QT: 395 QTc: 460 Interpretive Statements SINUS RHYTHM BORDERLINE ST-T WAVE ABNORMALITY- ANT/INF LEADS BASELINE ARTIFACT- I, II, III, AVR, AVL, AVF, V4-V6 BORDERLINE ECG No previous ECG available for comparison Electronically Signed On 10-11-2023 07:38:11 CDT by Adrián Adkins D.O.
--- NOTE | 2023-10-11 05:22 | PC.NURSE ---
poison control called, spoke with [place], protocol orders obtained and already in place. Repeat EKG in 6 hours from first one at 0520. Can be cleared from poison control in 8 hours of arrival time to ED. ERP aware. .
--- NOTE | 2023-10-11 05:25 | PC.NURSE ---
lab at the bedside
[2023-10-11] MEDS: SODIUM CHLORIDE 0.9% IV 1,000 ML 999 ML IV CONT (05:28)
[2023-10-11 05:35] LABS: Basophils Absolute Auto 0.02 K/mm3 (0.00-0.10); Basophils Percent Auto 0.3 % (0.0-1.0); Eosinophils Absolute Auto 0.03 K/mm3 (0.02-0.50); Eosinophils Percent Auto 0.4 % (1.0-6.0); Hematocrit 39.7 % (35.0-49.0); Hemoglobin 12.6 g/dL (12.0-15.0); Immature Granulocyte Absolute 0.03 K/mm3 (0.00-0.00); Immature Granulocyte Percent A 0.4 % (0.0-0.0); Lymphocytes Absolute Auto 2.26 K/mm3 (1.10-4.50); Lymphocytes Percent Auto 31.4 % (18.0-42.0); Mean Corpuscular HGB Conc 31.7 g/dL (32-36); Mean Corpuscular Hemoglobin 30.9 pg (27.0-31.0); Mean Corpuscular Volume 97.3 fL (78.0-102.0); Mean Platelet Volume 12.5 fl (9.2-11.8); Monocytes Absolute Auto 0.31 K/mm3 (0.10-0.90); Monocytes Percent Auto 4.3 % (2.0-11.0); Neutrophils Absolute Auto 4.54 K/mm3 (1.70-7.20); Neutrophils Percent Auto 63.2 % (50.0-70.0); Platelet Count Result 134 K/mm3 (150-420); Red Blood Count 4.08 M/mm3 (4.20-5.40); Red Cell Distribution Width 12.4 % (11.6-14.4); White Blood Count 7.2 K/mm3 (4.8-10.8)
[2023-10-11 05:50] LABS: Alanine Aminotransferase 15 U/L (14-59); Albumin Level 3.6 g/dL (3.4-5.0); Alkaline Phosphatase 76 U/L (46-116); Amphetamine Screen Urine Negative (Negative); Anion Gap 10 mmol/L (4-12); Aspartate Amino Transferase 14 U/L (15-37); Barbiturate Screen Urine Negative (Negative); Benzodiazepines Screen Urine Negative (Negative); Bilirubin,Total 0.2 mg/dL (0.00-1.00); Blood Urea Nitrogen 14 mg/dL (7-18); Cannabinoid Screen Urine Negative (Negative); Carbon Dioxide 25 mmol/L (21-32); Chloride 109 mmol/L (98-108); Cocaine Screen Urine Negative (Negative); Estimated CRCL calculation 77 ml/min; Estimated Glomerular Filt Rate > 60; Ethanol 115 mg/dL (0-6); Glucose 96 mg/dL (70-99); Methadone Screen Urine Negative (Negative); Opiate Screen Urine Negative (Negative); Osmolality Calculated 298 mOsm/kg (285-295); Phencyclidine Screen Urine Negative (Negative); Potassium 4.3 mmol/L (3.5-5.1); Sodium 144 mmol/L (136-145); Total Protein 7.4 g/dL (6.4-8.2)
[2023-10-11 05:52] LABS: Magnesium 1.8 mg/dL (1.8-2.4)
[2023-10-11 05:52] LABS: Acetaminophen < 2 ug/mL (10-30)
--- NOTE | 2023-10-11 05:53 | PC.NURSE ---
mother at the desk talking to dr ray
--- NOTE | 2023-10-11 05:58 | PC.NURSE ---
patient is resting on stretcher, sitter in the room. patient is alert and answering questions. patient is pale in color. patient reports that she always has low blood pressure. 90 systolic. patient denies any pain. patients mother has left the ED department at this time. patient does want boyfriend to come to room when he arrives.
[2023-10-11] MEDS: CALCIUM GLUC 1,000 MG/NS 50 ML 1,000 MG/50 ML BAG 100 MG IVPB (06:15)
--- NOTE | 2023-10-11 06:15 | PC.NURSE ---
encouraged patient to keep right arm straight to allow iv fluids to infuse as well as the calcium gluconate. patient verbalized understanding
[2023-10-11 06:19] LABS: SARS-CoV-2 RNA PCR Negative (Negative)
[2023-10-11 06:20] LABS: Influenza A QL RT-PCR Negative (Negative); Influenza B QL RT-PCR Negative (Negative); RSV RNA, RT-PCR Negative (Negative)
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
--- NOTE | 2023-10-11 06:52 | PC.NURSE ---
Notified [facility] that patient is here and day shift staff will call when repeat blood alcohol is completed at approx 0930
[2023-10-11] MEDS: FLUDROCORTISONE ACETATE 0.1 MG TABLET PO (08:32)
--- NOTE | 2023-10-11 08:49 | PC.NURSE ---
Addendum entered by Jannette Shaw, PCT 10/11/23 08:54: Correction -> 0830 assessment Original Note: 0900: Patient is resting comfortably on the stretcher. No requests or safety concerns at this time.
--- NOTE | 2023-10-11 09:47 | PC.NURSE ---
0930: Patient is sleeping comfortably at this time. No requests or safety concerns.
--- NOTE | 2023-10-11 10:22 | PC.NURSE ---
1030: Pt is sleeping comfortably. No requests or safety concerns at this time.
[2023-10-11 11:09] LABS: Ethanol 3 mg/dL (0-6)
--- NOTE | 2023-10-11 11:20 | ECG_ITS ---
Test Date: 2023-10-11 11:25:07 Measurements Intervals [place] Rate: 65 P: 1 [place]: 143 QRS: 33 QRSD: 85 T: -4 QT: 392 QTc: 410 Interpretive Statements SINUS RHYTHM BORDERLINE ST-T WAVE ABNORMALITY- ANT/INF LEADS BORDERLINE ECG Compared to ECG 10/11/2023 05:20:45 No significant changes Electronically Signed On 10-11-2023 11:58:39 CDT by Adrián Adkins D.O.
[2023-10-11 11:26] LABS: Pregnancy On Board Control Positive; Urine Pregnancy Test Negative
--- NOTE | 2023-10-11 11:27 | PC.NURSE ---
0846 posin control called for update new orders added urine Hcg and alcohol level
--- NOTE | 2023-10-11 11:39 | PC.NURSE ---
1138 POISON CONTROL UPDATED ON LABS AND EKG PT TO BE OBSERVED UNTIL 1300 STATED [facility] COULD BE CONTACTED FOR ASSESSMENT
--- NOTE | 2023-10-11 11:44 | PC.NURSE ---
[facility] STATES SHE WILL ARRIVE WITHIN AN HOUR
--- NOTE | 2023-10-11 11:54 | PC.NURSE ---
1130: Patient resting comfortably in bed and finished up her lunch tray. Asked if she could use the restroom inst[facility] of [facility], asked RN, said it was okay. Hooked pt back up to monitors after return from toileting. No safety concerns at this time.
--- NOTE | 2023-10-11 12:38 | PC.NURSE ---
1230: Pt is sleeping comfortably at this time. No safety concerns are present.
--- NOTE | 2023-10-11 13:18 | PC.NURSE ---
1318 case closed with poison control per Meir updated given pt has finished her 8hr observation time pt has not complaints of tremors or symptoms states she feels a little tired we will continue to wait for [facility] assessment
--- NOTE | 2023-10-11 13:30 | PC.NURSE ---
1330: Patient is sleeping comfortably in bed. Awaiting [address] arrival. No safety concerns at this time.
--- NOTE | 2023-10-11 15:12 | PC.NURSE ---
brissa betancourt finished assessment and pt to be deflected to home with 12hr follow up with brissa betancourt
--- NOTE | 2023-10-11 15:47 | PC.NURSE ---
1500: Gave pt belongings back and had her change, called mother for pick-up, discharged to waiting room as she wanted to ladies' locker room attendant her phone using the [employer]
== END 2023-10-11 15:15 | disposition home or self-care (01) ==
PROVIDERS: Emergency Medicine; Emergency Provider Emergency Medicine; PCP Physician Assistant
DX: T43.592A Poisoning by other antipsychotics and neuroleptics, intentional self-harm, initial encounter (principal); T43.222A Poisoning by selective serotonin reuptake inhibitors, intentional self-harm, initial encounter; F10.129 Alcohol abuse with intoxication, unspecified; Y90.9 Presence of alcohol in blood, level not specified; E83.51 Hypocalcemia; F17.210 Nicotine dependence, cigarettes, uncomplicated; Z79.899 Other long term (current) drug therapy
CPT/HCPCS: 36415; 80053; 80307; 81025; 83735; 85025; 87637; 93005; 96361; 96365; 99284; A9270; J0612; J7030